=== PATIENT | female | born 2000 | race Caucasian/White ===

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

== ENCOUNTER → 2018-06-07 | Outpatient (REF) | payer OTHER ==
[~2018-06-07] MED LIST: ACET30TAB PO; APRI0.37 PO; DICY20TA11 PO
[2018-06-07 15:17] LABS: CHLAMYDIA DNA AMPLIFICATION NEGATIVE (NEGATIVE); GC DNA AMPLIFICATION NEGATIVE (NEGATIVE)
== END ==
LOC: M SFHCWAGY 13:31
PROVIDERS: ATTEND Nurse Practitioner Women's Health
DX: Z11.3 Encounter for screening for infections with a predominantly sexual mode of transmission (principal)

== ENCOUNTER → 2018-12-21 | Outpatient (REF) | payer OTHER ==
[~2018-12-21] MED LIST changes: +ACET-716 PO; -ACET30TAB PO
[2018-12-21 19:55] LABS: CHLAMYDIA DNA AMPLIFICATION NEGATIVE (NEGATIVE); GC DNA AMPLIFICATION NEGATIVE (NEGATIVE)
== END ==
LOC: M SFHCWAGY 15:43
PROVIDERS: ATTEND Family Medicine
DX: Z11.3 Encounter for screening for infections with a predominantly sexual mode of transmission (principal)

== ENCOUNTER → 2019-03-29 | Outpatient (CLI) | payer OTHER ==
--- NOTE | 2019-03-29 14:15 | REP ---
RIGHT ANKLE: FOUR VIEWS. HISTORY: Inversion sprain. FINDINGS: There is some lateral soft tissue swelling. Ankle mortise is intact. No fracture is visible. Bones, joints, and soft tissues are otherwise unremarkable. IMPRESSION: Mild anterolateral soft tissue swelling. No fracture or subluxation seen. Electronically Signed by Slade Roland MD 03/29/2019 02:59 P
== END ==
LOC: M CLY 11:41
PROVIDERS: ATTEND Family Medicine
DX: S93.401D Sprain of unspecified ligament of right ankle, subsequent encounter (principal)

== ENCOUNTER → 2019-07-12 | Outpatient (CLI) | payer OTHER ==
[2019-07-12 17:49] LABS: HEMOGLOBIN 14.5 g/dl (12.0-15.5); PLATELET COUNT, AUTOMATED 288 10^3/uL (150-450); WHITE BLOOD COUNT 8.8 10^3/uL (4.0-10.0)
[2019-07-12 18:04] LABS: ALBUMIN 4.4 GM/DL (3.2-5.2); ALT/SGPT 18 U/L (12-78); BILIRUBIN,TOTAL 0.3 MG/DL (0.2-1.0); BLOOD UREA NITROGEN 13 MG/DL (7-18); C REACTIVE PROTEIN QUANTITATIV < 0.30 MG/DL (0.00-0.30); CALCIUM LEVEL 9.3 MG/DL (8.5-10.1); CARBON DIOXIDE LEVEL 25 MEQ/L (21-32); CHLORIDE LEVEL 111 MEQ/L (98-107); CREATININE FOR GFR 0.88 MG/DL (0.55-1.30); GLOMERULAR FILTRATION RATE > 60.0 (>60); GLUCOSE, FASTING 64 MG/DL (70-100); POTASSIUM SERUM 4.2 MEQ/L (3.5-5.1); SODIUM LEVEL 141 MEQ/L (136-145); TOTAL PROTEIN 7.3 GM/DL (6.4-8.2)
[2019-07-12 18:12] LABS: TOTAL 25(OH) VITAMIN D 23.7 NG/ML (30.0-100.0)
[2019-07-12 18:13] LABS: VITAMIN B12 LEVEL 560 PG/ML (247-911)
[2019-07-12 18:15] LABS: ERYTHROCYTE SEDIMENTATION RATE 6 mm/hr (0-20)
== END ==
LOC: M LAB 17:19
PROVIDERS: ATTEND Family Medicine
DX: R10.33 Periumbilical pain (principal); R14.0 Abdominal distension (gaseous); R19.7 Diarrhea, unspecified

== ENCOUNTER → 2019-07-23 | Outpatient (REF) | payer OTHER ==
[2019-07-24 13:41] LABS: CHLAMYDIA DNA AMPLIFICATION NEGATIVE (NEGATIVE); GC DNA AMPLIFICATION NEGATIVE (NEGATIVE)
== END ==
LOC: M SFHCWAGY 10:17
PROVIDERS: ATTEND Nurse Practitioner Women's Health
DX: Z11.3 Encounter for screening for infections with a predominantly sexual mode of transmission (principal)

== ENCOUNTER 2019-11-07 04:09 | Emergency (ER) | payer OTHER ==
[~2019-11-07] VITALS: Ht 165.1 cm; Wt 63.2 kg
[2019-11-07] MEDS ORDERED: hycosamine PO (04:16)
[2019-11-07] MEDS ORDERED: FAMO1TAB25 PO (04:16)
[2019-11-07] MEDS ORDERED: MIRT1TAB15 PO (04:16)
[2019-11-07 04:47] LABS: BASO # 0.1 10^3/uL (0.0-0.2); BASO % 0.9 % (0.0-1.0); EOS # 0.5 10^3/uL (0.0-0.5); EOS % 5.8 % (0.0-3.0); HEMATOCRIT 40.4 % (36.0-47.0); HEMOGLOBIN 13.6 g/dl (12.0-15.5); LYMPH # 2.6 10^3/uL (1.5-5.0); LYMPH % 32.5 % (24.0-44.0); MEAN CORPUSCULAR HEMOGLOBIN 28.9 pg (27.0-33.0); MEAN CORPUSCULAR HGB CONC 33.7 g/dl (32.0-36.5); MEAN CORPUSCULAR VOLUME 85.8 fl (80.0-96.0); MONO # 0.6 10^3/uL (0.0-0.8); MONO % 8.1 % (0.0-5.0); NEUTROPHILS # 4.2 10^3/uL (1.5-8.5); NEUTROPHILS % 52.4 % (36.0-66.0); PLATELET COUNT, AUTOMATED 233 10^3/uL (150-450); RED BLOOD COUNT 4.71 10^6/uL (4.00-5.40); WHITE BLOOD COUNT 7.9 10^3/uL (4.0-10.0)
[2019-11-07 05:11] LABS: ALBUMIN 4.3 GM/DL (3.2-5.2); ALT/SGPT 14 U/L (12-78); BILIRUBIN,DIRECT < 0.1 MG/DL (0.0-0.2); BILIRUBIN,TOTAL 0.3 MG/DL (0.2-1.0); LIPASE 168 U/L (73-393); TOTAL PROTEIN 7.3 GM/DL (6.4-8.2)
[2019-11-07] MEDS ORDERED: KETOROLAC 30 MG/ML 1ML VIAL IV ONE (06:15)
[2019-11-07] MEDS ORDERED: ONDANSETRON 4MG/2ML VIAL IV ONE (06:15)
[2019-11-07] MEDS ORDERED: ONDA4TAB6 PO (07:02)
[2019-11-07 07:08] VITALS: BP 134/74
== END 2019-11-07 07:23 | disposition home or self-care (01) ==
LOC: M ED 04:09
DX: K29.70 Gastritis, unspecified, without bleeding (principal); K52.9 Noninfective gastroenteritis and colitis, unspecified; F17.210 Nicotine dependence, cigarettes, uncomplicated; Z88.2 Allergy status to sulfonamides; Z88.8 Allergy status to other drugs, medicaments and biological substances; Z79.899 Other long term (current) drug therapy
CPT/HCPCS: 80047; 80076; 83690; 84702; 85025; 93041; 96374; 96375; 99284; J1885; J2405

== ENCOUNTER → 2020-06-25 | Outpatient (REF) | payer OTHER ==
[~2020-06-25] MED LIST changes: +FAMO1TAB25 PO; +MIRT1TAB15 PO; +ONDA4TAB6 PO; +hycosamine PO
== END ==
LOC: M SFHCCLAY 14:08
PROVIDERS: ATTEND Family Medicine
DX: N91.2 Amenorrhea, unspecified (principal)

== ENCOUNTER 2021-03-13 06:16 | Emergency (ER) | payer OTHER ==
[~2021-03-13] VITALS: Ht 165.1 cm; Wt 59.1 kg
[2021-03-13 06:16] VITALS: BP 128/70
[~2021-03-13 06:16] MED LIST changes: +FAMO10TA50 PO; -FAMO1TAB25 PO
--- OUTSIDE RECORDS SUMMARY | 2021-03-13 06:22 | CCD ---
Author Author [facility] Organization [facility] Address Unknown Phone Unavailable Care Team Providers Care Elevator Adjuster Name Role Phone Mike Sagastume Unavailable PROBLEMS Type Condition ICD9-CM Code [id number] Code Onset Dates Condition S tatus W/U Status Risk SNOMED Code Notes Problem Irregular periods/menstrual cycles N92.6 Activ e confirmed 61912148 Problem Mild episode of recurrent major depressive disorder F33.0 Active confirmed 021062330 Problem Lymphocytic colitis K52.832 Active confirmed 52426388 Problem Irregular periods N92.6 Active confirmed 80 130200 Problem Chronic intractable headache, unspecified headache type R51 Active confirmed 94193257 Problem Constipation, unspecified constipation type K59.00 Active confirmed 13405221 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 Code:[address]-78) SOB Drug Allergy Active ENCOUNTERS from 1998 to 2021-03-11 Encounter Location Date Provider Diagnosis [place] [address] [facility] [phone] [place] [address] Feb, Mike Sagastume IMMUNIZATIONS Vaccine Route Administration Date Status Pfizer #1 dose COVID-19 (given elsewhere) SARSCOV2 VAC 30MCG /0.3ML IM Unknown October 05, 2020 Administered Depo-Provera 150mg/1mL Medroxy-Progestrone Acetate IM Intram uscular July 23, 2019 Administered Depo-Provera 150mg/1mL Medroxy-Progestrone Acetate IM Intram uscular October 18, 2019 Administered Pfizer #3 dose COVID-19 (given elsewhere) SARSCOV2 VAC 30MCG /0.3ML IM Unknown October 26, 2020 Administered Influenza 36 months & up VFC IM Intramuscular Feb 02, 2016 Ad ministered Depo-Provera 150mg/1mL Medroxy-Progestrone Acetate IM Intram uscular Apr 30, 2019 Administered Depo-Provera 150mg/1mL Medroxy-Progestrone Acetate IM Intram uscular Feb 05, 2019 Administered Depo-Provera 150mg/1mL Medroxy-Progestrone Acetate IM Intram uscular November 21, 2018 Administered Depo-Provera 150mg/1mL Medroxy-Progestrone Acetate IM Intram uscular August 30, 2018 Administered Depo-Provera 150mg/1mL Medroxy-Progestrone Acetate IM Intram uscular Jun 07, 2018 Administered Depo provera 150mg (Medroxy-progestrone acetate) IM Intramus cular August 16, 2016 Administered Depo provera 150mg (Medroxy-progestrone acetate) IM Intramuscula r May 24, 2016 Administered Depo provera 150mg (Medroxy-progestrone acetate) IM Intramuscula r Mar 01, 2016 Administered SOCIAL HISTORY Tobacco Use: Social History Observation Description Date Details (start date - stop date) Current Smoker Sex Assigned At : Social History Observation Description Sex Assigned At Unknown Education: Question Answer Notes Level of Education: Finished High School Audit Question Answer Notes Total Score: 1 Interpretation: Alcohol Education Language: Question Answer Notes Languages spoken: Kyrgyz Sexual Hx: Question Answer Notes Had sex in the last 12 months (vaginal, oral, or anal)? Yes LMP: 06/15/2019 Have you ever had an STD? No Prevention Strategies discussed: Condoms with Men only Use protection? Yes How often? Some of the time Drug and Alcohol Question Answer Notes Total Score: 0 Interpretation: No problems reported Alcohol Screening: Question Answer Notes Did you have a drink containing alcohol in the past year? No Points 0 Interpretation Negative BMI Care Goal Follow-Up Question Answer Notes Below Normal BMI Follow-Up Dietary education for weight gain Tobacco Use: Question Answer Notes Are you a: current smoker Smoking Cessation Information Given 03/11/2021 Patient counseled on the dangers of tobacco use and urged to quit: 03/11/2021 How many cigarettes a day do you smoke? 6-10 Are you interested in quitting? Thinking about quitting Counseled the patient on smoking cessation, education provid ed 03/11/2021 REASON FOR REFERRAL No Information VITAL SIGNS No information MEDICATIONS Medication SIG (Take, Route, Frequency, Duration) Notes Start Da te End Date Status Amitriptyline HCl 10 MG 1-3 tablet at bedtime Orally Once a day for 30 day(s) Dec, Not-Taking Baclofen 20 MG 1 tablet Orally Three times a day- muscl e relaxer for 10 day(s) Feb, Active Celecoxib 200 MG 1 capsule with food Orally Once a day for 30 da y(s) Feb, Active Meloxicam 15 MG 1 tablet Orally Once a day for 30 day(s) 2 1 Feb, 2021 Active Aviane 0.1-20 MG-MCG 1 tablet Orally Once a day for 28 day(s) September, Active Sertraline HCl 25 MG 1 tablet Orally Once a day for 30 day(s) Active Omeprazole 40 MG 1 capsule 30 minutes before morning meal Orally Once a day for 30 day(s) Active PROCEDURES No Information RESULTS No Results REASON FOR VISIT PA Celecoxib 200mg capsules MEDICAL (GENERAL) HISTORY Type Description Date Medical History GERD Medical History Asthma Medical History Allergies Medical History Depression Medical History Endometriosis- Seen at [facility] Surgical History colonoscopy and Endoscopy 08/2016 Surgical History hernia repair- Dr. Krishna 08/2017 Surgical History wisdom teeth extract 2019 Hospitalization History No Hospitalization history informati on Goals Section No Information Health Concerns No Information MEDICAL EQUIPMENT No Information MENTAL STATUS No Information FUNCTIONAL STATUS No Information ASSESSMENTS No Information PLAN OF TREATMENT Medication Medication Name Sig Start Date Stop Date Celecoxib 200 MG 1 capsule with food Orally Once a day fo r 30 day(s) Feb, Meloxicam 15 MG 1 tablet Orally Once a day for 30 day(s) Feb, Baclofen 20 MG 1 tablet Orally Three times a day- muscl e relaxer for 10 day(s) Feb, Next Appt Details Provider Name:Mike Sagastume, 2020-11- 11 02:30:00 PM, Aida GARCIA , , [place], [address], Insurance Providers Payer Name Payer Address Payer Phone Insured Name Patient Relati onship to Insured Coverage Start Date Coverage End Date [facility] COMMUNITY PLAN [facility] [address] [facility] [address] ANA ROUSSEAU self
--- OUTSIDE RECORDS SUMMARY | 2021-03-13 06:22 | CCD ---
Author Author [facility] Organization [facility] Address Unknown Phone Unavailable Care Team Providers Care Geophysical Drafter Name Role Phone Mike Sagastume Unavailable PROBLEMS Type Condition ICD9-CM Code [id number] Code Onset Dates Condition S tatus W/U Status Risk SNOMED Code Notes Problem Irregular periods/menstrual cycles N92.6 Activ e confirmed 90606291 Problem Mild episode of recurrent major depressive disorder F33.0 Active confirmed 859769775 Problem Lymphocytic colitis K52.832 Active confirmed 08930875 Problem Irregular periods N92.6 Active confirmed 80 749287 Problem Chronic intractable headache, unspecified headache type R51 Active confirmed 35749138 Problem Constipation, unspecified constipation type K59.00 Active confirmed 10933785 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 Active confirmed 469453688 Problem Amenorrhea N91.2 Active confirmed 64203953 ALLERGIES Allergen (clinical drug ingredient) Drug/Non Drug Allergy do cumented on EMR Reaction Allergy Type Onset Date Status sennosides, LONG-TERM Senna Nausea/Vomiting Drug Allergy Ac tive Sulfasalazine Sulfa Antibiotics Hives Drug Allergy Ac tive montelukast Singulair([facility] Code:[address]-35) SOB Drug Allergy Active ENCOUNTERS from 1998 to 2021-03-11 Encounter Location Date Provider Diagnosis [place] [address] [facility] [phone] [place] [address] Feb, Mike Sagastume IMMUNIZATIONS Vaccine Route Administration [...] Education Language: Question Answer Notes Languages spoken: Macedonian Sexual Hx: Question Answer Notes Had sex [...] Information RESULTS No Results REASON FOR VISIT neck/shoulder MEDICAL (GENERAL) HISTORY Type Description Date Medical History GERD Medical History Asthma Medical History Allergies Medical History Depression Medical History Endometriosis- Seen at [facility] Surgical History colonoscopy and Endoscopy 08/2016 [...] 11 02:30:00 PM, Aida GARCIA , , [place], [address], Insurance Providers Payer Name Payer Address Payer Phone Insured Name Patient Relati onship to Insured Coverage Start Date Coverage End Date [facility] COMMUN[facility]AN [facility] [address] [facility] [phone] [phone] ANA ROUSSEAU self
--- OUTSIDE RECORDS SUMMARY | 2021-03-13 06:22 | CCD ---
Author Author [facility] Organization [facility] Address Unknown Phone Unavailable Care Team Providers Care Sales Demonstrator Name Role Phone Tom Haque Unavailable PROBLEMS Type Condition ICD9-CM Code [id number] Code Onset Dates Condition S tatus W/U Status Risk SNOMED Code Notes Problem Irregular periods/menstrual cycles N92.6 Activ e confirmed 16658002 Problem Mild episode of recurrent major depressive disorder F33.0 Active confirmed 862747043 Problem Lymphocytic colitis K52.832 Active confirmed 44913053 Problem Irregular periods N92.6 Active confirmed 80 533545 Problem Chronic intractable headache, unspecified headache type R51 Active confirmed 14715849 Problem Constipation, unspecified constipation type K59.00 Active confirmed 75155746 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 Aida GARCIA [phone] [place] [address] Jan, Tom Haque Nasal congestion R09.81 ; Cough R05 and Viral URI J06.9 IMMUNIZATIONS Vaccine Route Administration Date Status Pfizer #1 dose COVID-19(given elsewhere) SARSCOV2 VAC 30MCG/ 0.3ML IM Unknown October 05, 2020 Administered Depo-Provera 150mg/1mL Medroxy-Progestrone Acetate IM Intram uscular July 23, 2019 Administered Depo-Provera 150mg/1mL Medroxy-Progestrone Acetate IM Intram uscular October 18, 2019 Administered Pfizer #2 dose COVID-19(given elsewhere) SARSCOV2 VAC 30MCG/ 0.3ML IM Unknown October 26, 2020 Administered Influenza [...] Education Language: Question Answer Notes Languages spoken: Australian Sexual Hx: Question Answer Notes Had sex [...] a: current smoker Smoking Cessation Information Given 12/28/2020 Patient counseled on the dangers of tobacco use and urged to quit: 12/28/2020 How many cigarettes a day do you smoke? 6-10 Are you interested in quitting? Thinking about quitting REASON FOR REFERRAL No Information VITAL SIGNS Weight 131 lbs Jan, Height 65 in Jan, BMI 21.80 kg/m2 Jan, Heart Rate 102 /min Jan, Respiratory Rate 16 /min Jan, Temperature 99.9 degrees Fahrenheit Jan, Oximetry 98 Jan, Blood pressure systolic 123 mm Hg Jan, Blood pressure diastolic 82 mm Hg Jan, MEDICATIONS Medication SIG (Take, Route, Frequency, Duration) Notes Start Da te End Date Status Sertraline HCl 25 MG 1 tablet Orally Once a day for 30 day(s) Active Amitriptyline HCl 10 MG 1-3 tablet at bedtime Orally Once a day for 30 day(s) Dec, Active Omeprazole 40 MG 1 capsule 30 minutes before morning meal Orally Once a day for 30 day(s) Active Aviane 0.1-20 MG-MCG 1 tablet Orally Once a day for 28 day(s) September, Active Hyoscyamine Sulfate 0.125 MG 1 tablet as needed Orally Four time s a day September, Active PROCEDURES No Information RESULTS Component Value Reference Range LUIS M COVID AG (Point of Care) Reviewed date:01/22/2021 14:45:05 Interpretation:Negative Performing Lab:[facility], [facility] INTERFACE [address] [place] [address] , ,[place] [address] LUIS M COVID ANTIGEN NEGATIVE NEGATIVE REASON FOR VISIT ? sinus infection MEDICAL (GENERAL) HISTORY Type Description Date Medical History GERD Medical History Asthma Medical History Allergies Medical History Depression Medical History Endometriosis- Seen at [facility] Surgical History colonoscopy and Endoscopy 08/2016 Surgical History hernia repair- Dr. Krishna 08/2017 Surgical History wisdom teeth extract 2019 Hospitalization History No Hospitalization history informati on Goals Section No Information Health Concerns No Information MEDICAL EQUIPMENT No Information MENTAL STATUS No Information FUNCTIONAL STATUS No Information ASSESSMENTS Encounter Date Diagnosis Assessment Notes Treatment Notes Treatm ent Clinical Notes Jan, Nasal congestion (ICD-10 - R09.81) Jan, Cough (ICD-10 - R05) Jan, Viral URI (ICD-10 - J06.9) Dhaval arrieta have a viral infection at this time. Unfortunately, antibiotics do not help with viral infections. They are usually benign and self-limited infections, so treatment is based on symptomatic relief. Rest and drink clear fluids throughout the day. You may use humidification and saline irrigation to help with the congestion. You may also take motrin or tylenol as needed for pain or fever. You are considered to be contagious until you have been fever free for more than 24 hours. Viral infections sometimes may last 10-14 days before resolving completely. However, if symptoms are worsening any time after 5-7 days of illness, especially if you develop a fever or difficulty breathing; please be reevaluated as soon as possible. If you do not have any cardiac or blood pressure problems you may also consider using kpbh-duz-yheakcy decongestant (i.e. Sudafed) medication as needed. Jan, Other Medication/s di scussed with patient and questions answered. RTC as needed for worsening or unresolved symptoms. Patient states understanding and agreement with this plan. PLAN OF TREATMENT Treatment Notes Assessment Notes Clinical Notes Viral URI Dhaval arrieta have a viral infe ction at this time. Unfortunately, antibiotics do not help with viral infections. They are usually benign and self- limited infections, so treatment is based on symptomatic relief. Rest and drink clear fluids throughout the day. You may use humidification and saline irrigation to help with the congestion. You may also take motrin or tylenol as needed for pain or fever. You are considered to be contagious until you have been fever free for more than 24 hours. Viral infections sometimes may last 10- 14 days before resolving completely. However, if symptoms are worsening any time after 5-7 days of illness, especially if you develop a fever or difficulty breathing; please be reevaluated as soon as possible. If you do not have any cardiac or blood pressure problems you may also consider using exwk-dfo-qqmzjwf decongestant (i.e. Sudafed) medication as needed. Next Appt Details 2 - 3 Days unless improving Reason: Provider Name:Mike Sagastume, 02:30:00 PM, [address], , [place], [address], Insurance Providers Payer Name Payer Address Payer Phone Insured Name Patient Relati onship to Insured Coverage Start Date Coverage End Date [facility] COMMUNITY PLAN [facility] [address] [facility] [address] ANA ROUSSEAU self
--- OUTSIDE RECORDS SUMMARY | 2021-03-13 06:22 | CCD ---
Author Author [facility] Organization [facility] Address Unknown Phone Unavailable Care Team Providers Care Desktop Support Specialist Name Role Phone Mike Sagastume Unavailable PROBLEMS Type Condition ICD9-CM Code [id number] Code Onset Dates Condition S tatus W/U Status Risk SNOMED Code Notes Problem Irregular periods/menstrual cycles N92.6 Activ e confirmed 18097559 Problem Mild episode of recurrent major depressive disorder F33.0 Active confirmed 286532695 Problem Lymphocytic colitis K52.832 Active confirmed 18739858 Problem Irregular periods N92.6 Active confirmed 80 870386 Problem Chronic intractable headache, unspecified headache type R51 Active confirmed 07579239 Problem Constipation, unspecified constipation type K59.00 Active confirmed 38523928 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 [phone] [place] [address] Dec, Mike Sagastume Mild episode of recurrent major depressi ve disorder F33.0 ; Frequent headaches R51.9 ; Lymphocytic colitis K52.832 and Irregular periods N92.6 IMMUNIZATIONS Vaccine Route Administration Date Status Depo-Provera 150mg/1mL Medroxy-Progestrone Acetate IM Intram uscular October 18, 2019 Administered Depo-Provera 150mg/1mL Medroxy-Progestrone Acetate IM Intram uscular July 23, 2019 Administered Pfizer #2 dose COVID-19(given elsewhere) SARSCOV2 VAC 30MCG/ 0.3ML IM Unknown October 26, 2020 Administered Pfizer #1 dose COVID-19(given elsewhere) SARSCOV2 VAC 30MCG/ 0.3ML IM Unknown October 05, 2020 Administered Influenza 36 months & up [...] Education Language: Question Answer Notes Languages spoken: German Sexual Hx: Question Answer Notes Had sex [...] FOR REFERRAL No Information VITAL SIGNS Weight 129.8 lbs Dec, Weight-kg 58.88 kg Dec, Height 65 in Dec, BMI 21.60 kg/m2 Dec, Heart Rate 93 /min Dec, Respiratory Rate 16 /min Dec, Temperature 98.5 degrees Fahrenheit Dec, Oximetry 99ra Dec, Blood pressure systolic 126 mm Hg Dec, Blood pressure diastolic 73 mm Hg Dec, MEDICATIONS Medication SIG (Take, Route, Frequency, Duration) Notes Start Da te End Date Status Sertraline HCl 25 MG 1 tablet Orally Once a day for 30 day(s) Active Hyoscyamine Sulfate 0.125 MG 1 tablet as needed Orally Four time s a day September, Active Omeprazole 40 MG 1 capsule 30 minutes before morning meal Orally Once a day for 30 day(s) Active Aviane 0.1-20 MG-MCG 1 tablet Orally Once a day for 28 day(s) September, Active Amitriptyline HCl 10 MG 1-3 tablet at bedtime Orally Once a day for 30 day(s) Dec, Active PROCEDURES No Information RESULTS No Results REASON FOR VISIT Patient did see gastro, they recommended amitriptyline- if pcp approved for her IBS as well as anxiety? see consult notes MEDICAL (GENERAL) HISTORY Type Description Date Medical History GERD Medical History Asthma Medical History Allergies Medical History Depression Medical History Endometriosis- Seen at [facility] Surgical History colonoscopy and Endoscopy 08/2016 Surgical History hernia repair- Dr. Krishna 08/2017 Surgical History wisdom teeth extract 2019 Hospitalization History No Hospitalization history informati on Goals Section No Information Health Concerns No Information MEDICAL EQUIPMENT No Information MENTAL STATUS No Information FUNCTIONAL STATUS No Information ASSESSMENTS Encounter Date Diagnosis Assessment Notes Treatment Notes Treatm ent Clinical Notes Dec, Mild episode of recurrent ma senia depressive disorder (ICD-10 - F33.0) Will cont Zoloft as was helpful for both mood and PALOMARES. She is improved. Pt is agreeable. 09 Aug, 2021 Frequent headaches (ICD-10 - R51.9) Mostly stable. Pt agreeable. Dec, Lymphocytic colitis (ICD-10 - K52.832) Cont with hyoscyamine but try to wean and will titrate elavil. Pt agreeable. New medication risks and benefits reviewed and discussed with patient. Dec, Irregular periods (ICD-10 - N92.6) Discussed options and due to irregular periods we will restart OCPs rather than depo. Pt is agreeable. PLAN OF TREATMENT Medication Medication Name Sig Start Date Stop Date Sertraline HCl 25 MG 1 tablet Orally Once a day for 30 day(s) Aviane 0.1-20 MG-MCG 1 tablet Orally Once a day for 28 day(s) September, Hyoscyamine Sulfate 0.125 MG 1 tablet as needed Orally Four times a day September, Amitriptyline HCl 10 MG 1-3 tablet at bedtime Orally Once a day for 30 day(s) Dec, Treatment Notes Assessment Notes Clinical Notes Mild episode of recurrent major depressive disorder Will cont Zoloft as was helpful for both mood and PALOMARES. She is improved. Pt is agreeable. Frequent headaches Mostly stable. Pt ag reeable. Lymphocytic colitis Cont with hyoscyamin e but try to wean and will titrate elavil. Pt agreeable. New medication risks and benefits reviewed and discussed with patient. Irregular periods Discussed options an d due to irregular periods we will restart OCPs rather than depo. Pt is agreeable. Next Appt Details 3 Months Reason: Provider Name:Mike Sagastume, 02:30:00 PM, Aida GARCIA , , [place], [address], Insurance Providers Payer Name Payer Address Payer Phone Insured Name Patient Relati onship to Insured Coverage Start Date Coverage End Date [facility] COMMUNITY PLAN [facility] [address] [facility] [phone] ANA ROUSSEAU self
--- OUTSIDE RECORDS SUMMARY | 2021-03-13 06:22 | CCD | Continuity of Care Document ---
Author Author Nadja PRIDE MD Organization Unknown Address [address] [place] [address] Phone [phone] Care Team Providers Care Corporate Associate Attorney Name Role Phone Mike Sagastume D.O. AUTM [phone] Problems Description No Information Available Social History Type Date Description Comments Sex Unknown ETOH Use 2 A Month Tobacco Use Start: Unknown Non Smoker Tobacco Use Start: Unknown Patient is a current smoker, smo kes every day 1pk q2d Exercise Type/Frequency Does not exercise Allergies, Adverse Reactions, Alerts Active Allergies Reaction Severity Comments Date Singulair 01/06/2014 Senokot 01/06/2014 Sulfa Urticaria 09/20/2017 Medications Active Medications SIG Qnty Indications Ordering Provide r Date Mesalamine ER 0.375gm Caps ER 24HR 2tabs qam Unknown Omeprazole 40mg Capsules DR 1 cap qd Unknown Sertraline HCL 25mg Tablets 1 tab qd Unknown Hyoscyamine Sulfate 0.125mg Tablet s 2tabs bid Unknown Immunizations Description No Information Available Vital Signs Date Vital Result Comment 12/09/2020 2:04pm BP Systolic 112 mmHg BP Diastolic 64 mmHg Height 65 inches 5'5" Weight 131.00 lb BMI (Body Mass Index) 21.8 kg/m2 Winfred Body Weight 125 lb Weight 59.422 kg BSA (Body Surface Area) 1.65 m2 01/06/2014 1:36pm BP Systolic 140 mmHg BP Diastolic 70 mmHg Height 68 inches 5'8" Weight 116.00 lb BMI (Body Mass Index) 17.6 kg/m2 Weight 52.618 kg Weight Percentile 45th Height Percentile 94 % BSA (Body Surface Area) 1.62 m2 Results Description No Information Available Procedures Date Code Description Status 12/09/2020 78152 Office/Outpatient New Moderate M DM 45-59 Minutes Completed Medical Devices Description No Information Available Encounters Type Date Location Provider Dx Diagnosis Office Visit 12/09/2020 1:45p [facility] Te Pride MD K58.2 Mixed irritable bowel syndro me K59.00 Constipation, unspecified Assessments Date Code Description Provider 12/09/2020 K58.2 Mixed irritable bowel syndrome D nehemias Pride MD 12/09/2020 K59.00 Constipation, unspecified Te Pride MD Plan of Treatment 12/09/2020 - Te Pride MD* K58.2 Mixed irritable bowel syndrome * K59.00 Constipation, unspecified * * Comments:* Pt with vague Hx of possible MC in 2017 (I do not have records). was treated with 5-ASA at some point. Has been following with Gastro in [place]. Her repeat colonoscopy in 01/2020, Path normal duodenal mucosa, normal colonic mucosa. --Her 5-ASA was stopped.Her symptoms were never well controlled on or off 5-ASA meds. On her last visit the 5-ASA was stopped. Pt is following up here for treatment for irritable bowel syndrome * Follow up:* Follow up with PCP to start Amitriptyline 10 - 25 mg QHS (if sertraline can be stopped) She can follow up with me PRN * Recommendations:* 1) at this point would recommend starting her on Amitriptyline 10-20 mg po QHS for IBS-D. She is on Sertraline at present (interaction). I will let her PCP decide if needs sertraline, or if can be replaced with Amitriptyline. 2) In menatime would retry start taking Dicyclomine 20 mg or hyoscyamine 0.375 mg straight BID dosing rather than PRN 3) lactose free diet. 4) Her 5-ASA can be stopped 5) At this time I do not think she needs repeat EGD/D[place]ois Functional Status Description No Information Available Mental Status Description No Information Available Referrals Refer to Reason for Referral Status Appt Date Te Pride M.D. COLITIS/DIARRHEA/BLOOD IN [facility] K52.832-LYMPHOCYTIC COLITIS Scheduled 12/09/2020 [facility], Gastroenterology [address], [address] [place] [address] [phone]
--- OUTSIDE RECORDS SUMMARY | 2021-03-13 06:22 | CCD ---
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 Active confirmed 89699114 Problem Irregular periods N92.6 Active confirmed 80 947324 Problem Chronic intractable headache, unspecified headache type R51 Active confirmed 81523141 Problem Constipation, unspecified constipation type K59.00 Active confirmed 73691072 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 Active confirmed 709472106 Problem Amenorrhea N91.2 Active confirmed 08460279 ALLERGIES Allergen (clinical drug ingredient) Drug/Non Drug Allergy do cumented on EMR Reaction Allergy Type Onset Date Status sennosides, [facility] Senna Nausea/Vomiting Drug Allergy Ac tive Sulfasalazine Sulfa Antibiotics Hives Drug Allergy Ac tive montelukast Singulair([facility] Code:[address]-61) SOB Drug Allergy Active ENCOUNTERS from 1998 to 2021-01-22 Encounter Location Date Provider Diagnosis [facility] Aida GARCIA [phone] [place] [address] Jan, Mike Sagastume IMMUNIZATIONS Vaccine Route Administration Date Status Depo-Provera [...] Education Language: Question Answer Notes Languages spoken: Tristanian Sexual Hx: Question Answer Notes Had sex [...] day September, Active PROCEDURES No Information RESULTS No Results REASON FOR VISIT triage MEDICAL (GENERAL) HISTORY Type Description Date Medical History GERD Medical History Asthma Medical History Allergies Medical History Depression Medical History Endometriosis- Seen at [facility] Surgical History colonoscopy and Endoscopy 08/2016 Surgical History hernia repair- Dr. Krishna 08/2017 Surgical History wisdom teeth extract 2019 Hospitalization History No Hospitalization history informati on Goals Section No Information Health Concerns No Information MEDICAL EQUIPMENT No Information MENTAL STATUS No Information FUNCTIONAL STATUS No Information ASSESSMENTS No Information PLAN OF TREATMENT Next Appt Details Provider Name:Mike Matias Obeycari, 02:30:00 PM, [address] , , [place], [address], Insurance Providers Payer Name Payer Address Payer Phone Insured Name Patient Relati onship to Insured Coverage Start Date Coverage End Date FORMERLY [facility] [employer] [facility] [address] [facility] [id number] ANA ROUSSEAU self
--- OUTSIDE RECORDS SUMMARY | 2021-03-13 06:24 | CCD ---
Author Author [facility] Organization [facility] Address Unknown Phone Unavailable Care Team Providers Care Commanding Officer Traffic Division Name Role Phone Madhav Dacosta MD Unavailable Unavailable Madhav Dacosta MD Unavailable Unavailable Madhav Dacosta MD Unavailable Unavailable Madhav Dacosta MD Unavailable Unavailable Madhav Dacosta MD Unavailable Unavailable Madhav Dacosta MD Unavailable Unavailable Madhav Dacosta MD Unavailable Unavailable Agheli, Aref MD Unavailable Unavailable Agheli, Aref MD Unavailable Unavailable Agheli, Aref MD Unavailable Unavailable Agheli, Aref MD Unavailable Unavailable Agheli, Aref MD Unavailable Unavailable Agheli, Aref MD Unavailable Unavailable Agheli, Aref MD Unavailable Unavailable Agheli, Aref MD Unavailable Unavailable Agheli, Aref MD Unavailable Unavailable Agheli, Aref MD Unavailable Unavailable Agheli, Aref MD Unavailable Unavailable Agheli, Aref MD Unavailable Unavailable Agheli, Aref MD Unavailable Unavailable Agheli, Aref MD Unavailable Unavailable Agheli, Aref MD Unavailable Unavailable Agheli, Aref MD Unavailable Unavailable Agheli, Aref MD Unavailable Unavailable Agheli, Aref MD Unavailable Unavailable Agheli, Aref MD Unavailable Unavailable Agheli, Aref MD Unavailable Unavailable Agheli, Aref MD Unavailable Unavailable Agheli, Aref MD Unavailable Unavailable Agheli, Aref MD Unavailable Unavailable Agheli, Aref MD Unavailable Unavailable Agheli, Aref MD Unavailable Unavailable Agheli, Aref MD Unavailable Unavailable Agheli, Aref MD Unavailable Unavailable Agheli, Aref MD Unavailable Unavailable Agheli, Aref MD Unavailable Unavailable Agheli, Aref MD Unavailable Unavailable Agheli, Aref MD Unavailable Unavailable Agheli, Aref MD Unavailable Unavailable Agheli, Aref MD Unavailable Unavailable Agheli, Aref MD Unavailable Unavailable Agheli, Aref MD Unavailable Unavailable Agheli, Aref MD Unavailable Unavailable Agheli, Aref MD Unavailable Unavailable Agheli, Aref MD Unavailable Unavailable Agheli, Aref MD Unavailable Unavailable Agheli, Aref MD Unavailable Unavailable Agheli, Aref MD Unavailable Unavailable Agheli, Aref MD Unavailable Unavailable Agheli, Aref MD Unavailable Unavailable Agheli, Aref MD Unavailable Unavailable Agheli, Aref MD Unavailable Unavailable Agheli, Aref MD Unavailable Unavailable Agheli, Aref MD Unavailable Unavailable Agheli, Aref MD Unavailable Unavailable Agheli, Aref MD Unavailable Unavailable Agheli, Aref MD Unavailable Unavailable Agheli, Aref MD Unavailable Unavailable Agheli, Aref MD Unavailable Unavailable Agheli, Aref MD Unavailable Unavailable LANA GONZALEZ MD Unavailable Unavailable LANA GONZALEZ MD Unavailable Unavailable LANA GONZALEZ MD Unavailable Unavailable REINLANA JARAMILLO MD Unavailable Unavailable REINDL, LANA HOPE Unavailable Unavailable REINDL, LANA HOPE Unavailable Unavailable REINDL, LANA HOPE Unavailable Unavailable REINDL, LANA HOPE Unavailable Unavailable REINDL, LANA HOPE Unavailable Unavailable REINDL, LANA HOPE Unavailable Unavailable REINDL, LANA HOPE Unavailable Unavailable REINDL, LANA HOPE Unavailable Unavailable REINDL, LANA HOPE Unavailable Unavailable REINDL, LANA HOPE Unavailable Unavailable REINDL, LANA HOPE Unavailable Unavailable REINDL, LANA HOPE Unavailable Unavailable REINDL, LANA HOPE Unavailable Unavailable REINDL, LANA HOPE Unavailable Unavailable REINDL, LANA HOPE Unavailable Unavailable REINDL, LANA HOPE Unavailable Unavailable REINDL, LANA HOPE Unavailable Unavailable REINDL, LANA HOPE Unavailable Unavailable REINDL, LANA HOPE Unavailable Unavailable REINDL, LANA HOPE Unavailable Unavailable REINDL, LANA HOPE Unavailable Unavailable REINDL, LANA HOPE Unavailable Unavailable REINDL, LANA HOPE Unavailable Unavailable REINDL, LANA HOPE Unavailable Unavailable REINDL, LANA HOPE Unavailable Unavailable REINDL, LANA HOPE Unavailable Unavailable REINDL, LANA HOPE Unavailable Unavailable REINDL, LANA HOPE Unavailable Unavailable REINDL, LANA HOPE Unavailable Unavailable REINDL, LANA HOPE Unavailable Unavailable REINDL, LANA HOPE Unavailable Unavailable REINDL, LANA HOPE Unavailable Unavailable REINDL, LANA HOPE Unavailable Unavailable REINDL, LANA HOPE Unavailable Unavailable REINDL, LANA HOPE Unavailable Unavailable REINDL, LANA HOPE Unavailable Unavailable REINDL, LANA HOPE Unavailable Unavailable REINDL, LANA HOPE Unavailable Unavailable Diliberto, A Rita PA Unavailable Unavailable Diliberto, A Rita PA Unavailable Unavailable Diliberto, A Rita PA Unavailable Unavailable Diliberto, A Rita PA Unavailable Unavailable Diliberto, A Rita PA Unavailable Unavailable Diliberto, A Rita PA Unavailable Unavailable Diliberto, A Rita PA Unavailable Unavailable Diliberto, A Rita PA Unavailable Unavailable Diliberto, A Rita PA Unavailable Unavailable Diliberto, A Rita PA Unavailable Unavailable Diliberto, A Rita PA Unavailable Unavailable Diliberto, A Rita PA Unavailable Unavailable Diliberto, A Rita PA Unavailable Unavailable Diliberto, A Rita PA Unavailable Unavailable Diliberto, A Rita PA Unavailable Unavailable Diliberto, A Rita PA Unavailable Unavailable Diliberto, A Rita PA Unavailable Unavailable Diliberto, A Rita PA Unavailable Unavailable Diliberto, A Rita PA Unavailable Unavailable Diliberto, A Rita PA Unavailable Unavailable Diliberto, A Rita PA Unavailable Unavailable Diliberto, A Rita PA Unavailable Unavailable Diliberto, A Rita PA Unavailable Unavailable Diliberto, A Rita PA Unavailable Unavailable Diliberto, A Rita PA Unavailable Unavailable Diliberto, A Rita PA Unavailable Unavailable Diliberto, A Rita PA Unavailable Unavailable Diliberto, A Rita PA Unavailable Unavailable Diliberto, A Rita PA Unavailable Unavailable Diliberto, A Rita PA Unavailable Unavailable Diliberto, A Rita PA Unavailable Unavailable Diliberto, A Rita PA Unavailable Unavailable HUIZENGA, Florencio FOOTEON DO Unavailable Unavailable HUIZENGA, Florencio FOOTEON DO Unavailable Unavailable HUIZENGA, Florencio MINER DO Unavailable Unavailable HUIZENGA, Florencio MINER DO Unavailable Unavailable HUIZENGA, Florencio MINER DO Unavailable Unavailable HUIZENGA, Florencio MINER DO Unavailable Unavailable HUIZENGA, Florencio MINER DO Unavailable Unavailable HUIZENGA, Florencio MINER DO Unavailable Unavailable HUIZENGA, Florencio MINER DO Unavailable Unavailable HUIZENGA, Florencio MINER DO Unavailable Unavailable HUIZENGA, Florencio MINER DO Unavailable Unavailable HUIZENGA, Florencio MINER DO Unavailable Unavailable HUIZENGA, Florencoi MINER DO Unavailable Unavailable HUIZENGA, Florencio MINER DO Unavailable Unavailable HUIZENGA, Florencio MINER DO Unavailable Unavailable HUIZENGA, Florencio MINER DO Unavailable Unavailable HUIZENGA, Florencio MINER DO Unavailable Unavailable HUIZENGA, Florencio MINER DO Unavailable Unavailable HUIZENGA, Florencio MINER DO Unavailable Unavailable HUIZENGA, Florencio MINER DO Unavailable Unavailable HUIZENGA, Florencio MINER DO Unavailable Unavailable HUIZENGA, Florencio MINER DO Unavailable Unavailable HUIZENGA, Florencio MINER DO Unavailable Unavailable HUIZENGA, Florencio MINER DO Unavailable Unavailable HUIZENGA, Florencio MINER DO Unavailable Unavailable HUIZENGA, Florencio MINER DO Unavailable Unavailable HUIZENGA, Florencio MINER DO Unavailable Unavailable HUIZENGA, Florencio MINER DO Unavailable Unavailable HUIZENGA, Florencio MINER DO Unavailable Unavailable HUIZENGA, Florencio MINER DO Unavailable Unavailable HUIZENGA, Florencio MINER DO Unavailable Unavailable HUIZENGA, Florencio MINER DO Unavailable Unavailable HUIZENGA, Florencio MINER DO Unavailable Unavailable HUIZENGA, Florencio MINER DO Unavailable Unavailable HUIZENGA, Florencio MINER DO Unavailable Unavailable HUIZENGA, Florencio MINER DO Unavailable Unavailable HUIZENGA, Florencio MINER DO Unavailable Unavailable HUIZENGA, D KRISTOFER DO Unavailable Unavailable HUIZENGA, D KRISTOFER DO Unavailable Unavailable HUIZENGA, D KRISTOFER DO Unavailable Unavailable HUIZENGA, D KRISTOFER DO Unavailable Unavailable HUIZENGA, D KRISTOFER DO Unavailable Unavailable HUIZENGA, D KRISTOFER DO Unavailable Unavailable HUIZENGA, D KRISTOFER DO Unavailable Unavailable HUIZENGA, D KRISTOFER DO Unavailable Unavailable HUIZENGA, D KRISTOFER DO Unavailable Unavailable HUIZENGA, D KRISTOFER DO Unavailable Unavailable HUIZENGA, D KRISTOFER DO Unavailable Unavailable HUIZENGA, D KRISTOFER DO Unavailable Unavailable HUIZENGA, D KRISTOFER DO Unavailable Unavailable HUIZENGA, D KRISTOFER DO Unavailable Unavailable HUIZENGA, D KRISTOFER DO Unavailable Unavailable HUIZENGA, D KRISTOFER DO Unavailable Unavailable HUIZENGA, D KRISTOFER DO Unavailable Unavailable HUIZENGA, D KRISTOFER DO Unavailable Unavailable HUIZENGA, D KRISTOFER DO Unavailable Unavailable HUIZENGA, D KRISTOFER DO Unavailable Unavailable HUIZENGA, D KRISTOFER DO Unavailable Unavailable HUIZENGA, D KRISTOFER DO Unavailable Unavailable HUIZENGA, D KRISTOFER DO Unavailable Unavailable HUIZENGA, D KRISTOFER DO Unavailable Unavailable HUIZENGA, D KRISTOFER DO Unavailable Unavailable HUIZENGA, D KRISTOFER DO Unavailable Unavailable HUIZENGA, D KRISTOFER DO Unavailable Unavailable HUIZENGA, D KRISTOFER DO Unavailable Unavailable HUIZENGA, D KRISTOFER DO Unavailable Unavailable HUIZENGA, D KRISTOFER DO Unavailable Unavailable HUIZENGA, D KRISTOFER DO Unavailable Unavailable HUIZENGA, D KRISTOFER DO Unavailable Unavailable HUIZENGA, D KRISTOFER DO Unavailable Unavailable HUIZENGA, D KRISTOFER DO Unavailable Unavailable HUIZENGA, D KRISTOFER DO Unavailable Unavailable HUIZENGA, D KRISTOFER DO Unavailable Unavailable HUIZENGA, D KRISTOFER DO Unavailable Unavailable HUIZENGA, D KRISTOFER DO Unavailable Unavailable HUIZENGA, D KRISTOFER DO Unavailable Unavailable HUIZENGA, D KRISTOFER DO Unavailable Unavailable Re-disclosure Warning The records that you are about to access may contain information from federally-assisted alcohol or drug abuse programs. If such information is present, then the following federally mandated warning applies: This information has been disclosed to you from records protected by federal confidentiality rules (42 CFR part 2). The federal rules prohibit you from making any further disclosure of this information unless further disclosure is expressly permitted by the written consent of the person to whom it pertains or as otherwise permitted by 42 CFR part 2. A general authorization for the release of medical or other information is NOT sufficient for this purpose. The Federal rules restrict any use of the information to criminally investigate or prosecute any alcohol or drug abuse patient.The records that you are about to access may contain highly sensitive health information, the redisclosure of which is protected by Article 27-F of the [facility] Public Health law. If you continue you may have access to information: Regarding HIV / AIDS; Provided by facilities licensed or operated by the [facility] Office of Mental Health; or Provided by the [facility] Office for People With Developmental Disabilities. If such information is present, then the following [facility] mandated warning applies: This information has been disclosed to you from confidential records which are protected by state law. State law prohibits you from making any further disclosure of this information without the specific written consent of the person to whom it pertains, or as otherwise permitted by law. Any unauthorized further disclosure in violation of state law may result in a fine or assisted sentence or both. A general authorization for the release of medical or other information is NOT sufficient authorization for further disc losure. Family History Family Member Name Family Member Gender Family Member Status Date o f Status Description Data Source(s) Unknown Unknown Problem MEDENT ([facility], ) Encounters Encounter Providers Location Date Indications Data Source(s ) Unknown [address] [facility] [address] 03/11/2021 12:00:00 AM EDT eCW1 ([facility]) Unknown [address] [facility] [address] 03/10/2021 12:00:00 AM EDT eCW1 ([facility]) Outpatient Attender: Madhav Dacosta MD _[id number] 01/2021 07:15:59 PM EDT [facility] Out[facility] [address] [facility] [address] 01/22/2021 12:00:00 AM EDT eCW1 ([facility]) Unknown [address] [facility] [address] 01/22/2021 12:00:00 AM EDT eCW1 ([facility]) Outpatient [address] [facility] [address] 12/28/2020 12:00:00 AM EDT eCW1 ([facility]) Outpatient Attender: LANA Moncada/Gricel/Armen/Jonathan jaramillo 12/09/2020 01:45:00 PM EDT MEDENT ([facility] Outpatient [address] [facility] [address] 10/29/2020 12:00:00 AM EDT eCW1 ([facility]) Unknown [address] [facility] [address] 10/29/2020 12:00:00 AM EDT eCW1 ([facility]) Unknown [address] [facility] [address] 09/23/2020 12:00:00 AM EDT eCW1 ([facility]) Outpatient [address] [facility] [address] 09/22/2020 12:00:00 AM EDT eCW1 ([facility]) Outpatient Attender: Madhav Dacosta MD [id number] 07/21 02:39:33 PM EDT [facility] Out[facility] Attender: Madhav Dacosta MD [id number] 07/21 02:34:49 PM EDT [facility] Attender: Rita Diliberto PAReferrer: KRISTOFER REDD DO 08/05/2020 08:21:03 PM EDT [facility] Attender: Rita Diliberto PAReferrer: KRISTOFER REDD DO 08/05/2020 08:21:03 PM EDT [facility] Attender: Rita Yipiberto PAReferrer: KRISTOFER REDD DO 08/05/2020 08:21:03 PM EDT [facility] Attender: Rita Manzanareser: KRISTOFER AUTUMN REDD DO 08/05/2020 08:21:03 PM EDT [facility] Unknown [address] [facility] [address] 06/26/2020 12:00:00 AM EST eCW1 ([facility]) Outpatient [address] [facility] [address] 06/25/2020 12:00:00 AM EST eCW1 ([facility]) Outpatient [address] [facility] [address] 03/23/2020 12:00:00 AM EST eCW1 ([facility]) Attender: Rita Manzanareser: KRISTOFERCHADWICK REDD DO 02/05/2020 08:20:09 PM EDT [facility] Immunizations Vaccine Date Status Description Data Source(s) Pfizer #3 dose COVID-19 (given elsewhere) SARSCOV2 VAC 30MCG/0.3ML IM 10/26/2020 02:49:00 PM EDT completed eCW1 ([facility]) Pfizer #3 dose COVID-19 (given elsewhere) SARSCOV2 VAC 30MCG/0.3ML IM 10/26/2020 02:49:00 PM EDT completed eCW1 ([facility]) Pfizer #2 dose COVID-19(given elsewhere) SARSCOV2 VAC 30MCG/0.3ML IM 10/26/2020 02:49:00 PM EDT completed eCW1 ([facility]) Pfizer #2 dose COVID-19(given elsewhere) SARSCOV2 VAC 30MCG/0.3ML IM 10/26/2020 02:49:00 PM EDT completed eCW1 ([facility]) Pfizer #2 dose COVID-19(given elsewhere) SARSCOV2 VAC 30MCG/0.3ML IM 10/26/2020 02:49:00 PM EDT completed eCW1 ([facility]) Pfizer #2 dose COVID-19(given elsewhere) SARSCOV2 VAC 30MCG/0.3ML IM 10/26/2020 02:49:00 PM EDT completed eCW1 ([facility]) Pfizer #2 dose COVID-19(given elsewhere) SARSCOV2 VAC 30MCG/0.3ML IM 10/26/2020 02:49:00 PM EDT completed eCW1 ([facility]) COVID-19 VACCINE Pfizer 10/26/2020 12:00:00 AM EDT completed [facility] Vaccine Series Complete: YESThis Data wa s Submitted to [facility] Via [employer]. Pfizer #1 dose COVID-19 (given elsewhere) SARSCOV2 VAC 30MCG/0.3ML IM 10/05/2020 02:48:00 PM EDT completed eCW1 ([facility]) Pfizer #1 dose COVID-19 (given elsewhere) SARSCOV2 VAC 30MCG/0.3ML IM 10/05/2020 02:48:00 PM EDT completed eCW1 ([facility]) Pfizer #1 dose COVID-19(given elsewhere) SARSCOV2 VAC 30MCG/0.3ML IM 10/05/2020 02:48:00 PM EDT completed eCW1 ([facility]) Pfizer #1 dose COVID-19(given elsewhere) SARSCOV2 VAC 30MCG/0.3ML IM 10/05/2020 02:48:00 PM EDT completed eCW1 ([facility]) Pfizer #1 dose COVID-19(given elsewhere) SARSCOV2 VAC 30MCG/0.3ML IM 10/05/2020 02:48:00 PM EDT completed eCW1 ([facility]) Pfizer #1 dose COVID-19(given elsewhere) SARSCOV2 VAC 30MCG/0.3ML IM 10/05/2020 02:48:00 PM EDT completed eCW1 ([facility]) Pfizer #1 dose COVID-19(given elsewhere) SARSCOV2 VAC 30MCG/0.3ML IM 10/05/2020 02:48:00 PM EDT completed eCW1 ([facility]) COVID-19 VACCINE Pfizer 10/05/2020 12:00:00 AM EDT completed [facility] Vaccine Series Complete: NOThis Data was Submitted to [facility] Via [employer]. Medications Medication Brand Name Start Date Product Form Dose Route Admi nistrative Instructions Pharmacy Instructions Status Indications Reaction Description Data Source(s) celecoxib 200 MG Oral Capsule Celecoxib 200 MG Celecoxib 200 MG 03/11/2021 12:00:00 AM EDT 1.0 {capsule_with_food} [facility]am 15 MG Oral Tablet Meloxicam 15 MG Meloxicam 15 MG 03/11/2021 12:00:00 AM EDT 1.0 {tablet} active Meloxicam 1 5 MG [facility] celecoxib 200 MG Oral Capsule Celecoxib 200 MG Celecoxib 200 MG 03/11/2021 12:00:00 AM EDT 1.0 {capsule_with_food} active Celecoxib 200 MG [facility]CW1 ([facility]) meloxicam 15 MG Oral Tablet Meloxicam 15 MG Meloxicam 15 MG 03/11/2021 12:00:00 AM EDT 1.0 {tablet} active Meloxicam 1 5 MG [facility]CW[facility]) Baclofen 20 MG Oral Tablet Baclofen 20 MG 03/11/2021 12:00:00 AM ED T 1.0 {tablet} active Baclofen 20 MG eCW1 ([facility]) Baclofen 20 MG Oral Tablet Baclofen 20 MG 03/11/2021 12:00:00 AM ED T 1.0 {tablet} active Baclofen 20 MG eCW1 ([facility]) Amitriptyline Hydrochloride 10 MG Oral Tablet Amitript yline HCl 10 MG Amitriptyline HCl 10 MG 12/28/2020 12:00:00 AM EDT active Amitriptyline HCl 10 MG [facility]CW[facility]) Amitriptyline Hydrochloride 10 MG Oral Tablet Amitript yline HCl 10 MG Amitriptyline HCl 10 MG 12/28/2020 12:00:00 AM EDT active Amitriptyline HCl 10 MG [facility]CW1 ([facility]) Amitriptyline Hydrochloride 10 MG Oral Tablet Amitript yline HCl 10 MG Amitriptyline HCl 10 MG 12/28/2020 12:00:00 AM EDT suspended Amitriptyline HCl 10 MG [facility]CW1 ([facility]) Amitriptyline Hydrochloride 10 MG Oral Tablet Amitript yline HCl 10 MG Amitriptyline HCl 10 MG 12/28/2020 12:00:00 AM EDT suspended Amitriptyline HCl 10 MG [facility]CW1 ([facility]) Amitriptyline Hydrochloride 10 MG Oral Tablet Amitript yline HCl 10 MG Amitriptyline HCl 10 MG 12/28/2020 12:00:00 AM EDT active Amitriptyline HCl 10 MG [facility]CW1 ([facility]) Aviane 0.1-20 MG-MCG Aviane 0.1-20 MG-MCG 09/24/2020 12:00:00 AM ED T 1.0 {tablet} suspended Aviane 0.1-20 MG-MCG [facility]CW1 ([facility]) Aviane 0.1-20 MG-MCG Aviane 0.1-20 MG-MCG 09/24/2020 12:00:00 AM ED T 1.0 {tablet} active Aviane 0.1-20 MG-MCG eC W1 ([facility]) Aviane 0.1-20 MG-MCG Aviane 0.1-20 MG-MCG 09/24/2020 12:00:00 AM ED T 1.0 {tablet} suspended Aviane 0.1-20 MG-MCG eCW1 ([facility]) Aviane 0.1-20 MG-MCG Aviane 0.1-20 MG-MCG 09/24/2020 12:00:00 AM ED T 1.0 {tablet} active Aviane 0.1-20 MG-MCG eC W1 ([facility]) Aviane 0.1-20 MG-MCG Aviane 0.1-20 MG-MCG 09/24/2020 12:00:00 AM ED T 1.0 {tablet} active Aviane 0.1-20 MG-MCG eC W1 ([facility]) Aviane 0.1-20 MG-MCG Aviane 0.1-20 MG-MCG 09/24/2020 12:00:00 AM ED T 1.0 {tablet} active Aviane 0.1-20 MG-MCG eC W1 ([facility]) Aviane 0.1-20 MG-MCG Aviane 0.1-20 MG-MCG 09/24/2020 12:00:00 AM ED T 1.0 {tablet} active Aviane 0.1-20 MG-MCG eC W1 ([facility]) Aviane 0.1-20 MG-MCG Aviane 0.1-20 MG-MCG 09/24/2020 12:00:00 AM ED T 1.0 {tablet} active Aviane 0.1-20 MG-MCG eC W1 ([facility]) Aviane 0.1-20 MG-MCG Aviane 0.1-20 MG-MCG 09/24/2020 12:00:00 AM ED T 1.0 {tablet} active Aviane 0.1-20 MG-MCG eC W1 ([facility]) Seasonique 0.15-0.03 &0.01 MG Seasonique 0.15-0.03 &0.01 MG 09/22/2020 12:00:00 AM EDT 1.0 {tablet} suspended Seasoniq ue 0.15-0.03 &0.01 MG eCW1 ([facility]) Seasonique 0.15-0.03 &0.01 MG Seasonique 0.15-0.03 &0.01 MG 09/22/2020 12:00:00 AM EDT 1.0 {tablet} active Seasonique 0.15-0.03 &0.01 MG eCW1 ([facility]) Seasonique 0.15-0.03 &0.01 MG Seasonique 0.15-0.03 &0.01 MG 09/22/2020 12:00:00 AM EDT 1.0 {tablet} suspended Seasoniq ue 0.15-0.03 &0.01 MG eCW1 ([facility]) Seasonique 0.15-0.03 &0.01 MG Seasonique 0.15-0.03 &0.01 MG 09/22/2020 12:00:00 AM EDT 1.0 {tablet} active Seasonique 0.15-0.03 &0.01 MG [facility]CW[facility] Insurance Providers Payer name Policy type / Coverage type Policy ID Covered republican ID Covered republican's relationship to perez Policy Perez Plan Information [facility] [id number] CHILD [id number] BCBS EMPIRE [id number] CHILD [id number] BCBS EMPIRE [id number] CHILD [id number] [facility] MEDICAID [id number] S [id number] [facility] Community Plan Primary [id number] [facility] I [id number] Self [id number] [facility] COMMUNITY PLAN [id number] [facility] COMMUNITY PLAN [id number] [facility] MEDICAID [id number] S [id number] [facility] COMMUNITY PLAN [id number] 0 [id number] [facility] MEDICAID [id number] S [id number] Managed Care - [facility] Community Plan P [id number] S [id number] D Managed Care [facility] P [id number] S [id number] UN FB [id number] S [id number] [facility] MEDICAID [id number] S [id number] [facility] MEDICAID [id number] S [id number] Managed Care - [facility] Community Plan P [id number] S [id number] Medicaid S [id number] S [id number] [facility]-Medicaid [id number] [facility]-Medicaid [id number] MEDICAID [id number] SP [id number] [facility]-Medicaid [id number] [facility] [id number] ANSI-Medicaid [id number] ANSI-Medicaid [id number] ANSI-Commercial [id number] ANSI-Medicaid [id number] ANSI-Medicaid [id number] ANSI-Medicaid [id number] ANSI-Medicaid [id number] ANSI-Commercial [id number] ANSI-Commercial [id number] ANSI-Medicaid [id number] [facility] COMMUNITY PLAN [id number] BCBS EMPIRE [place] DIV [id number] VALUE OPTIONS OUTPATIENT CLAIM [id number] [facility] [id number] GF2 [id number] SELF PAY ONLY UNAVAILABLE UNAV AILABLE [facility] ([facility]) [id number] Self [id number] [facility] ([facility]) [id number] Self [id number] [facility] [id number] SP [id number] [facility] [id number] S [id number] [facility] [id number] FA2 [id number] SELF PAY UNAVAILABLE UNAVAILA BLE SELF PAY SP UNAVAILABLE UNAVAILA BLE [facility] [id number] SP [id number] [facility] O [id number] S [id number] Medicaid S [id number] S [id number] [facility] MEDICAID [id number] S [id number] UN FB [id number] S [id number] BCBS E[place]IRE [id number] CHILD [id number] [facility] [id number] CHILD [id number] [facility] O [id number] S [id number] D [facility] P [id number] S [id number] [facility]-Medicaid [id number] [facility]-Medicaid [id number] ANSI-Medicaid [id number] ANSI-Medicaid [id number] [facility] [id number] ANSI-Medicaid [id number] [employer] MEDICAID [id number] S [id number] [employer] MEDICAID [id number] S [id number] ANSI-Medicaid [id number] ANSI-Medicaid [id number] Problems, Conditions, and Diagnoses No Information Surgeries/Procedures Procedure Description Date Indications Data Source(s) OFFICE OUTPATIENT NEW 45 MINUTES 12/09/2020 12:00:00 A M EDT [facility] ([facility] ) Results ID Date Data Source [id number] 01/22/2021 01:29:00 PM EDT [facility] Name Value Range Interpretation Code Description Data Jessica rce(s) Supporting Document(s) SARS COVID ANTIGEN NEGATIVE [facility] This lab was ordered by SUSSY ayers nd [facility] by [facility]. ID Date Data Source LUIS M COVID AG (Point of Care) 01/22/2021 12:00:00 AM EDT eC W1 ([facility]) Name Value Range Interpretation Code Description Data Jessica rce(s) Supporting Document(s) NEGATIVE NEGATIVE LUIS M COVID ANTIGEN eCW1 ([facility]) ID Date Data Source [id number] 08/05/2020 09:15:00 AM EDT [facility] Name Value Range Interpretation Code Description Data Jessica rce(s) Supporting Document(s) Follow Up [facility] QTJDKt7vOcYADvBmWYAtHfzJAMohIVotLCUvB5F0JDxtYc6VFMrcamXmUKYhAc1+WNNzKC9cbv7vWKEq gMy [file] U9OcjBcvt5Di/NsbGD+RxLkiexQ7Ztl8WXRYuSXlFoH4eUUlZnJ3oCs3vZYyksYbrI4JtRnm+Ax6S/darío [file] 0ahc0FG/WcU+UoIcOpDIlVqiYazfvTaBRezS+w6/Darío [file] TWlc+Román/bAsg0iKU+DXuvyu79PODJdl5z1ReO305U [file] bottle label inspector/BYtqEZF3ZB64sJBu2pOCrCOJ74D32eqCfa9VGhyDssi2VJyUzfFnkU8ilYRvBKICjfKegQLIQoJA [file] 4G/spa consultant/umD6Gq2ysG3wpe59K74PTy+LqNtSx7brCR2EnDFLdUmezeKU+y5w1Umz6EYVNAal7SI5cVnnq [file] ga9M8lbCoilXVgfn0L4TYlhluEs01/Jn3xC/vlxZlbDIi40mwK6HKIZtBVM0q1yWKVaE0VOwIA8N/Flores E7cSnx9AvW5ffq07WLv7C5iysNsKTwU1KLZU4gpzAMf+5ZRTf1InY0vevZQ3ugqBCVVSwmBpk3G7zseY J4Axax1+aKlqim06b0+bkg/oCQhiaj2IosHoUFQRjb v4vDnlsUWH2+8cv1K1pNc3f0lLnq8rV3Xxb+EVMGtCLQwNE5IOX+j1Jn4cWsMiqJSaxTNAxfjLz2dRnB Abpo3DkoLPT6PfsRLclVi6WAbb2iT6t/30nmrISj/0XTvsyqVutmqHhy0gECKzocq8krcfX+CfY/zRKw mSljHNB08J1JXGxGyAZY2cmh4FnplrqGzzw58+2hGd qIomhbtnfCLwvYzlJiFl5tbaD0xlWozsL59yVFUfaXdfwW57CbRCKqZ4n/Qf3LRLq/G27A0i91RZx2Bn HnSLsjDOb+FlxETdA/miRlIx3T0HY8w40A3/JXkQtOWHrG2ZuU8f4zmVg558uvPDe0cpjJZDA7bfXpEB tIGc7FAnN2OJYLPiBthBFrJ9XVldZSm8/rd4lzGvzb +pHRpq2fA9XV7DE20M0h3iiWQ/pgd959Ujmx89ncjVGI5FEbg7uOx00myqMrFTVtMKI/MTNrvvfw4+1ST GRADE TEACHER Vrk/PJKA4KzMwuOqU8rOr/n1v74PjDN+HJSvDJ+VBZlIVlekGKt1+BvbRs4IiCOVb/pM9FFp5CHUGVsA 5fp5KL7Xwbirz5e9T3ZoAXLtZIZ/XkjQkklIxvTC3m 7b+F17jdAubvACTQ311kaPacrVVWRApj5j2Pw/R4V8eQC/hJqt1roPd1fg1s7IZ+mCDb7dMXaNSVxpp3 Wg6/WMb6cjgojZvxPGN8iycrW13e//MiDjXYi5+u+rJT9A0+65fA1+1f2Kc8d4qWh48sx5wla+YZShbL cIV+dx4YwPBTQJkAel+q2irWxcdIRth+/PzBUbPFNb VkeiNpchXPiEl2LUe9lGMUxbHNOh+35ccmy2nwCXBb3hXIctMssAuBp7aov4KJzeAfKQmgozMTzydJWq 7KDeXxV2193XQHfLiefslXRMta9FvaJ/BmjOCeILgi8vN5LA8So1Qw69KdPEv3wGxnlP+XnkXZiBb6i1 rq0K1d2e+tyllWzqy8B/W1outPGUAds9Y4hOui6apK cnK8HK6bi81Cd9okN4crDVuLxH/hkte8sWW5qob/lZ+MATA/PS7GKe9CIpicoAY3jzMJusJlrRoO5BAFa [file] closing machine operator/4VOrtibdGj18SUKBXx6I43Nqef0AyLYhttbm8U [file] /Mda+r/compliance director/ySutXjVq59TYhb+yA2/Ae3Sjw7Jc+Wh [file] mqpHBr2LEXa48mlqH84m7u+mender hand+Y5C4b8pVgt0929e 0AWjbboDV/ulZz8guNVB1mYSCiXDHm4r7ZeTrEDcMp3kSTvU1jNjIgFVx+MDXArYcZdcndfNh5CE/azV /JuF3ccfXm0AVEI5ZB88IJNWk85ildzzv+2IrrkQVS3HIMr2GJhbUfN0UhqwLT7y2mZrmPG7Q7w3hy0J hdt/raqR++ERZs4sXIdJ+pI9c0+uyG0D/16ZcngH0n UshU3jceeeTjX4vEy0OlJGQWpgkq5ioqGaxI5uzu0wpOt0php7eFay9oOTYJegYE8dY9KFq+cJHnoQp6 a4VkrSKMy9N9weUt80FIfxiQ3z9itvyqm4pYGPkMcxLsrwX7mMg1sOY9VQCGG5r48z/EP64qjYjbvvU9 V5cm0b+9tJHJ2o6nPwOMyOXQi10XrL9eq1SPubFr+B LtOSXHoqPVMShJ4cFoSm8iNZg6qQYesU17f5Q9VEg5+z81W02O92md6sqX8rOtJtI/AjNV7TyW/6XgAr jvYGRJhLxb7j7bPUckN1VlD7euPVkQkbzyxlN00KoBpaMbhXl4XmwOtjGRhrtCyxzLTnsrKfFKA7kExG Civ7W1xsen1P2/PVblKU5yGQXqgWJoKUrSyXrZPvbU TvaN5SgKgoQndasHR0VNjvhINdsOgH9BfGwoC871VwT/Hvp+5SbvkvMECwRzvqwPDaUB8BadxM+KYhUl bE0SKq9ZhyAN6ElbG5dxgRdjYyYHnxpw1oX3KyIWdwoXwNkpwgUj6NHGsrB4e2/Vq9+gbA3jdRkL9+ADRIEL [file] supervisor+Bj [file] 3kxDmUTOrt4cqMAMSYGN+motor hotel manager+PrIcNe5LPuB/74p8hh [file] KCDO7/256hkZE0DA2xpmEDIaSy6YoIMbZToQ1k+ [file] XkfJ0VHN0jbvzoYneNYk3/uouSn8MAkAI449u0g6ZcjiL3u/diamond picker/tJmQb36fNqrLAo2gc1FXlQNqhcY3 845R79+INpxJq1XN1aN2FpJgWBRmkOrPuoxpuQ/lE7gMlf4yWESkVgAEDgY+G35gHYyZPZCr4yBnn+8I 86/PB0vrfOori4i8h+BtsHYm2YSfiHuP2VSZQr0Vdo 6+O8hO1YmlMsyM0+4OjKu2fW/FCvebc9vNmGZm4cdrTSX6CAVOXdE9bwc+ZZLXDBrsIRnZGT3UqeTVsj +yrN9p43QTdcEJvJ0RfTJapPrkQT/37T1wu9773yv8aTfZ1dh6rlgH9p2lbjG6pu+d0snadaeEhsfYOS X7O/MlWw7jzyQ4LnZa1PvWLrsJPKR5dOWQ6bWidwkP l5Up76lGEl8PaZ7PLsRBXrANPom4F2qT9L+BYir2PTA7qgkduCa4STSYe9rOYM0zL2qVIm4ZOe33MPJ3 IuPqqIczih5w9gFKeH5W6u9NvIyAcpAGlCVZARQpF+aDkU7TZbUBDlS8U4fbOOop9lkBKJ+gK5My++v9 63ky2/LDlsoH+B/AVgxy2/hzfQdyNcBW1ovsEq9QKf zLjaLjiRCHiF7bIJL+w3EMwDPstNdtqKntaOS8Uwv6pGuUBJwKbP5Lqgpd2shGodFsu3N7m0cY3/lgtu lJN5icGB7cdOkIbdAUq4tliKqQLw7SA+zctKuFlyH7AITiFHx5yGlPgKF5qQ3kH6q3O98KZlaffx+EjK W94e/UOzmJ3TmF8oZXXGaxxfrPCsvXuCDIE33d3cTr h0tHXxGtDRRcly5rqt+HYTpbKQd8XBQ947YJO06RAfHLbyl78MH97Wz9ntDQOm7GkBqReYd6Tp98Ns2s i/XX+3VLvuitUnn3lNXXrY23R6+bnFvROx/R4aDeV7+7LT7Ie+Ji2yruC49uVDDCCDAg8A2el5rLgs3Z +GmPUSIrCQwGtE6CfPimsmb6Qqz3Y+Mason/RGp7Sy0I0 [file] NzCjUuIx2ZQQ32nC5C7K6bdwBUY3BKQICmO+mBx57qz219Zk0LwQIjYj34PVdUntyLKX//rGN43TU+Swine Genetics Researcher [file] 8p1+eZ+Concepción+hmtEOLYJdIC/jqZdFtyyiHTw6LS79radlcyjNZK8kxfrWmEDFVs1cETeYluWvtbCNUrZQ [file] //oDvVWHZwk5n520g/vJftZvjls0+UrRvMhKimA/Darío/QDtykKGHYf70mXnJoeGy+PVhsJ7NZLOsYqPKG [file] PdUks3nFaB7MyRV0zOM08klJjQDUzqaDdBvi+SUtsiRXZWydJovyEo7etXa4V3jA6XL5JTg5HOZHR/Mason m3XdJ5X+61dPLFXjwr5/+uEB73OgUosrtOoZOuZOhD SZ8hmBB/8E6y6cvpCeUM60GfcMroFbZuuTK+0hdgKKsU1ccL52p1V8DOkt0HztZrpJQYRHbPQWulqQS7 qznZQulHvIVHPHm0+8yVmx732v+iu154U/riwNyUNmIt5XuFuHsQ57N+yVj9O78wTmpXzg1m2f9+4hy5 Gy2sD1t6hSs9GON0lTMptBShGZHBUaWYAjVjKU0zNZ Iy34GgV4PmU0IyB1GyPuuHIdoDJCCdbzDIVbuj+8OoBVsvtlE9jF7MmKMgflCs8NsiOKZQg8hh/n5WFy IOpVby0cuTLf5uGYseoHt/LyWF44y5Gfzhl6QJGlwaF5P8EwB58OHgRqtMxx1WZOBa0V5xfXLSxWsWwp 9HtmO3DGFn4YW1xlmiT3+WsurBvDlAdJTzPYRKK3dh ST2ZuCF80mJ8LAp1AA4NVkRodcoHd2DXY/Wm9iF+n4DMPzPiQ7F1klp+Ossrq9rlUXCx6KxmA+jLg6ki /x6L3N3EP1BW9sxyxQS5Tb7KP0veXFOzF82RyJDGz49wZu0+hM85FQMsSi7aQkWT48Oe07yayg8sQgBj KxWrwNgdYviOWfcpBzhCpXHqhEybhm6k9CyZlQcau+ Wli+7BphotDoiRvQy4vw1XKTUtPgxWdN96OB8UfK90S14GzXFH9U41qHoHIVgyTlTY40LkF/CFLDPCaC Q7/HHMoAzicdlTanusccRBXeAsZEIjIcdFeSIVC4onepDknuMbEKzyV4HtwtTq9Fn86oB3U+UBotGHk3 sTX8kMNSvPo6D5GpXFyEY8RGn4WNroH42B3o8beYeP XdJhDkm2zdMaUTFVh2xhXZYCs4mQolskY0y0lwsFsCPs2VuOwqxrFXiDQinCZRI3Y0Fi+psTY4Yyhk3W pGyaFw4hNltrfJ3xdMswRUPZIlNNFg8qfdSylPmQayfku9ZO7B/XTkdlvN0tiDgmli08iQ0szOD5/Jeremías [file] lECFgguHSC6Kd41Jbdp2i46n7g7OZYj/DARÍO+YkvLhrx [file] sales development associate+xdubQJZDqLa8OjQNFSHtO8pmAqH5fZgiorg+cHYjKDca [file] [facility]/j6RyvtOlQsDD0zfxp62gCXpUHM25fZZIsCIXn95xuaD6QsOyDjtJqxCz1gjluTv6edgSck04Z6g lPUKdQ/fjTQQjebu8a0Ia96usOoK6Yjs7XYSpvdP0E 6ASNSNEp4ZjByo74hFCnR8MuqqiE98Itq2V2KK/8hgbgw3F4M6MtZ5E1h6bVg9PkCAYJXMzeFVo2PF0o luDuvcHkRdEH2ca8vaDnHJ0iXcTP3/oYuhHZsNnsNq1184YcF1zfEt3kOnOZ1XAjeM7ELCHjKAPj+Donny [file] UY1xYj8eplAqJvOMuQiOe3mY/gUL+hboB8SIsfxVjj6uWga4ulZgvXXr9KEbe+xNbXpCtlPMZW/BB+motor hotel manager [file] lRxwfvkMV9yAkp/X5G4j7ijT5oIA2Iur2XOx+iYsDBwiPXsV3cAdOt9xa+GgL8M/DPwD8D/Felicita/A8+Zm g9GLRCz0vCXRqcDyZVybvc6AfUNdTYwhDczNoaDngdo0vhgFPVGhk/nda9w4px1YN1sPRvq7ouf3f0h/ 5y7r3mmC0FVGXy22da3lI7AelwYIuAvdYn3qJ+fs1P u0rNBt4DHQlkgEOrTM7EcSXly9r9QkkYJdVXzc92FT0b4fpWdEp51CmSGc9uqb7q2F0dTfwBNcnc7L1a 480fEu/pBpjrc9IN3FXkdHam5x+5+G7vMXoy+oy5YqAhxRYt+Rq8XbZidjl7N6MseCUfOsG69o3g+aiW pWQs7flM795VPDM3gCWCpmHoZAsGxhnafamTt/42aO EwWcTZuHXOOZ0HSHeMXONYO2u/mMYM/CoSBuaYklEqKC3oTwuobYy5srEbO8rhNMBLoEca9zcFYOiZdq iQv/ninvq9BxI2THWDJyJ6AQJa9J24KxwrzcHWg1noPfC8Ibq/AJyqFgDUbDdsikyzOcNQDvvALibrEQ WY/j6YpM7H7OGLYOOeazE2ztlxxAmjP3jOA84m2cNb 2ARFBtjmXKDlzZz5IvNeUuM6psnstY8R4tS/VFtzTxgA+Swine Genetics Researcher+q+deQVe07VJ+toL8vuxl0EoaRF8DQzM0 [file] lsWHKY0k9LAuVoLi0EVXRKUB9WF0ZNRXAOWKpwjQCL x92rakoL6XcU2FA4H/3WUSiGDNmpeJyJa3Rzlx+qkrGiNC9MVNIJD+MgMUZ3yKVr7xYgSdq7D1yBWsS3 NRXy+oo7h/afdfrzxqJtMvrwZ0Q2PyPfarJE6MGUzkWsfzv4hQNVgxmAozQZcEaMTK9PpJQEoLexsxlp od1KfqBYcg+YygfASnXM9jMS5FouUPhtStTNNb8Ac+ /bGF3SQapgWl2+z8jlAv6sdVHk30sXIb5GVT8jWyVJlpANQkSu8plozOGxbEHkz0yxrge+KThYqo/HvA n23weYS+8T3BDYEBvNFsWh4qC8f+Uh1wKUN3ue7ucpbf71xLs/st5TZVX8HbYLUJb1OASBBWUy1J/rubber stamp maker [file] JEbz+zPgvZQTs18x92WOkvi6j+County Director Welfare+SImyc5qbFDmb [file] Pj7lWZxJrX+Darío+5scTa00Xdy5aay8bR8cNl2Uyqvlv [file] Swine Genetics Researcher+a5YiNcuuMKqh1t+aW/LVFInS7foJshEUkEPkJJu Wu5xSTqx1C+vpLPCQa41grogK0N4kITqi45ZMe1gDSryL7HKgChN7LBfWfCrmoExi+WAi2L9e3d5h1gi c0l+Ogc+Y5eHwwDN5pZL9D3PipIK5tuAkyIU+lwiEfdDWmkYaRptGzdR27wh0+U46LU7i7MJyli6TpxV zIsp7/drkVwn3sX4+draiHCbICzl9bukjUWsyLN8HH /zgj8KBhaFfNGzvvXxb8p+mOThj7kURpS91Kw2tk2vyyKMuk2t4K9ttK9qcN5HCXG84X1w21V5OMj7tR VwB6pOmkG64PfiKNNZi5+5lgkk8vrlwV3eg83ZpRAGwOqrxTZUIzD1c1gsB3vHYcaZdn0VyMNjdxiXng FAUNa0SfH8fe+hsOkLQ6CuKZVPxMpJvZwkY2car0B/ O2tDqzQL8MF5uDhtV6w+za7agWOLYQCUU5CSeYTeJgeVU0zHd4WSZ+MXvAFOeZeFvbaukZ1swVwUH3rE G8ySXHCjJ91x+2kgrxIiRFULnbNB27D3C1wwRQ9cA8nKQRbQvR3ChndwOfrMB1T2Hx5XnPJGVdrH/Johnathan [file] SYfQNrLp6byvzQ99HfS2rujYMkYO9fEM4cbCfxt/Medical Assembler [file] BDCNFG1HmSuHKJNWREJm4iaBLj+ByP1+JSDU0s7YaB qNw9nJEN/3UhHAdJ9yt2Pf6WhBZYosYT0JLphvgvCJDH6nOMWKWLHbKHicouOtdHUhPR6EOdLkKI8rwm 4FMoQ0PRH7gVGaPx3ULPH8BeJjUE3XBQVVK6H= ID Date Data Source HCG, SERUM QUANTITATIVE 06/25/2020 12:00:00 AM EST eCW1 ([facility]) Name Value Range Interpretation Code Description Data Jessica rce(s) Supporting Document(s) < 1.0 HCG, SERUM QUANTITATIVE [facility] ID Date Data Source [id number] 02/05/2020 11:15:00 AM EDT [facility] Name Value Range Interpretation Code Description Data Jessica rce(s) Supporting Document(s) Follow Up [facility] WZCWEs5wFqKZMmFqPIUwIlpULLkoDCmuCYIsA7B7WAytTt7CNBgavyRcKGZlZp8+ACUrTV3gah3gSDOr gMy 3dFGFdGmwkJ0XtQYFtd50XACZnGDxZFjVkLyRuQFR6XuZqCVB5EGE5XcIdYfhzVD2qEID8CCRvSZmuHH FvTRCoQSCpSAV5QC4qBGvxUDliQf7CVK2ch8IyDJRhGJDwWveITHavDQqiPGBcSZWtJULyD257nnGeZR 3HlNXwWNz5ITKoCuL2PIXfGxC6SWImNkGmOdVsGDXp O4Biy225tyJlefD3AP8CB8NpYZV4MTu9S3wdIoCrVLVpYCFxWO7cCkD0RVYdWi3QuCscIXToUYYnBg5B yTa7HTK0PEMyCc9+Pj4+Gv6dqrXaKkkFGNAzAT0gqh22HA9KdCBrOF6SEEndS56wXPzlNn07XYdbCYWk IaCaGBx0Ma4cQrAbc8NkV2TuZIr7Q8kSWccdP4UcIQ vdOR7eJOF4OCArVy2+Ig6vLBLhLY27ALXrGSLTO4NsoeDqsrVuPAe0CNRiWm6+Zx2qdqLdRqhLJIAbGM 5pbi34QP1VFU9pmNleMtI1GJgiT65sfSWmA9wlTxNpK4FybMuhBFLsYH5oP0AoMJthYKRpMF1ycyJdaR 4ZsLt3YRYsPz3VnUB7IXZzJ46hVJCrQTBFBPQhw7Yp HV7Sq0ubylHgOWIzOI9CBXHcY5XQX5RhB4uqoVcoTQQiVY8ILFlvrTWkSVp7KK2AcIAqHAFuD86wmU9y ZF20JBq+ZjN5ekYksS1PaWjkc9RHGK468u9C0+RpMm7WtWnXIXFXJFodDZUE4B0FoPaJVMIQt5Qhh2yv 7gwafAYd/OS/9208uE0qigf5gd4cjsd29k3E16um97 [file] SkeRpikRMfqjs767u/Swine Genetics Researcher/VMMxm2kb3iZDeydIO2puZXQoriHVYHF7DPufQYNe0UdMwYwWFw1oZxP+EAo [file] 2pKdECO4Jqz46Z/Darío+PT/vjUldPyzc38RK/mE1AEF7X0bnNbCfudZHFX9Kc4NRZxd4dFocSwAMX4Ij3i [file] EdE8+Darío/oAq4IaH5p4K3Y0Fago+zWwgtqme8OjAGAE [file] UVgBpFmHKjrYUqO3RmQyoug/stick welder/EYyJJCiiiHJb88 [file] /HQLeH12UEvo98HV8XeGVgnMLYealn6RfE8XU [file] GgsxVI3aPz/nailer hand+SODWLqdj3IE3pfzHp9P1Jq1oEEh9Gf9Jp17ouIMAk9wsF5GFS3r5qe8n2B7zKQr7z [file] +Fvfk20uCYsBIwwHQF/sUiaRzLj7xpAwDt1eh39T4snkOHONV4hnL7fejIcG1MyhY7/DELIVERY RECRUITER+uWkl0O0q02 [file] QVPpy4ajLGL20wU/H53lxQbPZyJUnJlmj3+motor hotel manager/ABj/ [file] corporate development [file] 0Tr9/ERC5OHEPnFRG57Zicw9H8eUvnkA5amgRvm+q5w1GR9ba/MARY ELLEN+1uvtkUbvjUyDT8r3+H1uz+yMzk [file] rv38shjoQ9EBdnHgscbNlgglywaib5cY6atVJxK9cv 84FUobLA7xlcRYVObt2uL4G3JZE/eh5RS6vi68S4YsvYlgmX0JJxGQWyxJ48bGk7bR1Pivxnp41hVdC4 KSxo+GuUZqy59FHGXuK7Hq4sFpvyLP+BjRuq1oO0nIVKBycs6einxL+PtvY+DELIVERY RECRUITER+p+o/LjKZZM7R0G9uw [file] Swine Genetics Researcher/rQXV6KbenkyP3+ClpAHaBhhnRdJtMgJzF7I2mDW erupMcoKKa5kIUcwF5/7XjzHj1R8+E60QU5TES4jmfGYmLjUD97lgKif+G/gYdel0Me2ttW0R3xP3x2+ b9mG0+Ctz4TaleDiOZTBTeEeaLkAbrKiJyY6CYrDmrJlnN4+zuxbxmlqBezUtDenL9qPsD6qqTGCpjM9 gStGIGoPtD43F+OSLKY9pEUHKSm/5pjpe0q8dYQH+F 82n9/oc4dT0yNeRIafUMqITqbHxJFwI4nQ06RS65ZdxuTsgmxuRdZOI22R3/rNdUeLv9UzFCPuhWDhVE /U2XAnQRdLqbcQNSkqnmzA6Mh7uOjZTQDuo9Fk03frii3H8HrhaVsQuL7jFB5tSboYMZSA/UxPXK7xx0 JQNm06hF23uZbAduVCUSdcqkOiwClLAa7n5/HNYZr8 M7YottcSM3hs0v4MqYcIst8LpEyoTff6ye/B45rY6AXMnvu6AQcTeMEFm31Q72DuXzdBuw4++hpvC0kg OR6gUeIbJsJNy0OWh2hFRwEFjxf5zrp1bN8bFxQMqMGV5b284sRZljRdiuzooOLy6MKbwJ2pt/FUts12 JZR/1bz86JdZeCmKgjMf/CWkmTD6qoadp6h3tmv4fW ezsZaXy/p09DC9bVdhojNhRyggTZsSDDAk9Hr6LycwhOhtoaXGc8XVjn8RXtirXTwlx8n+8KoDHNptcO /LR13yaukJhJhJOAa0MsyikRfW2dw7ZjXkE1ljRGxMP2ZFBe5Ef2Cc0HUVXGHEsXU0aJ//lNCwW17+8g 1+FZ+t9vukyd5kzgieAl6G+NYOI20u8oDe10bLb9Zo tfqw0+lSDdCWLnFrGwWF+6v15TR6e9irLx4aMbTV4X9ISQSj6YzwpykYiXB9Sxt/b4fHHtyIJBC/OJdh 8QtkrwaIrfEmQYu0Vk+Vptn7Gqi+2fca19yioiQ7E1w8eK0n0EkMBsIKPZ72jXtStNoprtFxLu3yjA1f 31oK2W5486kph7UEuIeH++0Gm457Y2iXim7pM/1eFU [file] IJrq7LdrW/5mN8EHVWt4qjeQ+hAeqei1rwVmqi5AbYGpjOj7YEOlpgy1rI2sVpyJ/pgNtz96jYsqf/darío [file] KryAijZUFd9U+HGyC4xL32gcX8VseaMtvlQC89h/Darío [file] lpbrCBtT6sjfDx+ARTIS/Fsl3AwXy8NJk8KEPJ7d7JLD WfTP2HIqQqw1GlWe08L6sq4smmz13LWgEZG6p945mJisIiw/hYlsBo0owniL0oHOMuhFi7EyBhvxcmks pXxFaTbhr81T4GFZgPR022+ZKC/dW8tjUbe6IW4O5xyzzIvaLfKILlBp2Xk0AStrx+NGaUI1mNUi+3sZ 8Pl7SeDUj6FLmtn6MLZijwunzcoRCLzu8zIFtnOKLt /b3CT842cBDsakKVev6IkgQbGB1RZKKHjNAFGg/RWluG4WVWpj1GWpP4jHeT9zO8rxgL5oceuX+/zj5J l5QqKu0lq7lSlaMoxgdLXH03mGLd+UBs1cStaTiAa64e4Ve3rmP6R/lWLU11AZrkZ/1rcxObpj//+708 OBzcol3o4k4F4ageBeHbIDNhEJrKBEG0eZoSSSZACP LCbhLkXTjnAaA9ZSSkOnLAaNSW0OLZ32RvDWjcdRQGhQeoszcnKo9gwhm+qqnv/bF+fjnr696I0ic685 Ty28A8Z322q2ALbNLdtiJ0caOj8hkI0hjoZxeEpnIcRDPET3VunpBr9B2QkFkk0yuEPCtgINyBlPm265 director clinical data+F8S/hTf4p93W4d61kRVZ005fmGiDHX03uG02Vv JAp7VdsWjpnvLVKwalpk7Huzu6myPqjFcO+i74kR19B0fw29vxlM5NTBc3qOYYWVBGPjUAmmcYyHWgq1 fuw/Bk8pjqcFqwPlUDx5QpDhX+FRiBaQcWDpmIiS0TtEzbbIYfs1GekgWjhmAIQS0ZGbH5aaUV+ji3IY ERBB517QckFAtfEblCApNDWDclwj6+K6hKhfhYeatQ RWIn5KasRHkwcK2SRYiWP0Syg3Lud3Nvg4uoiEa5gwp0bnZJ8lBx0eW2PVC4rMUF0iLVCrdmRKIIqlkg Sn/7XtpyUDgWsfu1I86wB2PeYfB10mExX5vkDAIeFsY/qMlCh3JUUS/0fiCI6pDHGa88dbN2Zvnf16Ms xRot8lrh8VEFgDmZnPkhDGYEDICZnPqampkoKoF/alves [file] banbury operator/kqdcU1jG9bNIdx/3LWKVIGCzrmeXZWPtkN2k1y [file] [facility]+QBOZqburz7C5K+7NSgF2GiWviFYbn1F1VSIX96gSDRKCAJyHLnkukYXjLHYWFqJjbezWQC5GRb [file] u8XhODAMjoeghuPtnfkgwzsimFf2slyC4A1yzkhQ8okkjfUyrpt6R6BiCg0Eb3M14kVXDELJgvGgm/motor hotel manager [file] qtTcarD+E+I/Bi3Z5h2b/e5aUpuA09M+/oqy8LZVn/Kv/+application support consultant+oooO6yx2dEmmGnAlr66kZdIQTjjjPw [file] 9G ID Date Data Source [id number] 01/22/2020 10:15:00 AM EDT [facility] Name Value Range Interpretation Code Description Data Jessica rce(s) Supporting Document(s) EGD-Colonoscopy [facility] QESQAk1iStLNXmHtFMQmAolINFljCEdxUZIyB3X0JIklVf9TUYmgjcVcJVSeIu9+EDLbFH9djt6yQGWc gMy [file] 9QCdQmgdgTWyc6HIXnOj3NcspO41oK15HUmYfAa41WhbJ/BxVdBCE/hhnar/1ST GRADE TEACHER+rvDLXp+c6O8dA1YzD [file] MUw65MGDFEyigsnd4V575IS5jzOOIY0fq5LvPmbGPcHpsWUE28govY8/lEeyzIUS0Y81I3xpWidb+studio operator [file] Medical Assembler/1EuniawRhhbQIcHQiGqjcbjDUa+W47G6qO3Wx/zylpzaBCOECAb2sN8ddgu8iiERW0bqYZJpCeb4y [file] r6aMYtU8Ar1pmRbVbtrhotq4ZuMeWYjKz2zblZrmMvT06oJ87VevSdBKO1a3LjkAL7W3MB587vL3/SANTA YNEZ [file] p8D8+compliance [file] NEURO UROLOGIST/QKRpJ6EchCh2chd4Na2Oqy/IUiVAp2XkR2cCmrzOqTElN6n8yc77El8JLAJmWQpRauQmD9BqacR/ [file] FV2uYu/48/Darío/uxf4DwQJ/Y5nmmC7368JeI6dIvRDjYw3GifL6GAVM51TYtfB7cZkLtLi22pjuzFW9RB [file] TAxuV/4ce4EcQngnN+life assurance representative+Dmtj1s05ktlwV4vQkPbtGRJ+1Ph8655bMrXndBzPb+QKAdkjxDCsvkPPlPi [file] +qU4lpKNpvDAow09zDTBX1BzJKgo7c92h7kO9P+mobile home set up person [file] vhf0d+UUfcxg8kmMim4gFhEYrmkImfwVEKOwZWP+iuc5jb33xhcJxiOmihjnukZPQBVQ/I+n7IIjz/motor hotel manager [file] 4iaxoK/q0sVjzsYGyF/P/Vft+yHLCHbYbNo0/iIxND4IkBFYrCnhkzZbldV/leasing specialist/2KxnT+VMtEucmfyP [file] zVkYU/BKND/+/1ST GRADE TEACHER/T7U1EO3/+H/fD3vv5TTOpW4RC5 WnaufPZg6dFuNUbY6qz2YMTO0q7xWN5r8cbLjywB/WKcMxryJwwmNJO8K4+W/iobf0KAqGdfe4btjGDd weXPycSwvg+Fy8KnQHuV3Mz1Bbpi/S+kf9dnUYo+Lrvek1K0ZwdXQPPg7MHDotwE2fry01ZaRgb1Iwp0 Rc6B2pIHhUduEEC7LtlL4J4+4t4Sjz8BUqRZofS3Jz pHzHSa2AOaIopRfjS3C94rhijSibdkk/vsowhZwCRUgJs8We2+nCSqz1Bspi/CPP/ayeaCXhCoJx+n1J 7VDijK3pZ+Vd6EVtv169AjoEj45Rd8/g/nXesRyzrO6PVSVk/6U0mHZ7MJ6sWm/CAYOh+eJOLhKYEcop 0CiCjmac27SJyQn0ZW7zve62yBcGen+CEI5nwK2uBF SwgnSnj9YdZGZ+Ip4io8zzhj4ybx5/FwXVLDzioko+K+P9wmpitPW2NP7ov71EV4bYFroNZxKjVeGZlR m7uYLI08ib3Ir0IJexWPhgPDookkpP1qygy/TfNBtmzYJ/7EBKtUJvzRYA3KxZxa9NDj/NhvMJuTd2s1 riFTP0GzwH7FGrGiJyH8zLop7isK9i+LQeal368r/H /longoria//Mu//Mu//Mu//Mu//Mu//Mu//D+ybhMM8xSEZsX8WkjERo67qie0gFjUpCh7qPxt0T0o2JLD7Zdv [file] Satcy/z/RhfsR9Ymq3vrq90T/6DbYa2YsbVSciaBWDZOYoQQnkoo9anT3lpY2W0yhmC67icUO2FFs94J3 Ylr2lDNPn3jMv3ggayW+n5TEPmrhm/QtXPFovcTbf/rftpg3LoiecEFgUuzyBn/ndxm1JtTMaLC1y/1ST GRADE TEACHER [file] [id number] ID Date Data Source [id number] 01/17/2020 10:45:00 AM EDT [facility] Name Value Range Interpretation Code Description Data Jessica rce(s) Supporting Document(s) SARS coronavirus 2 RNA Not Detected [facility] This lab was ordered by [facility] and reported by [facility]. Procedure Social History Code Duration Value Status Description Data Source(s ) Smoking 03/11/2021 12:00:00 AM EDT Current Smoker completed [facility] 03/11/2021 12:00:00 AM EDT Current Smoker completed Curre nt Smoker eCW1 ([facility]) Smoking 01/22/2021 12:00:00 AM EDT Current Smoker completed Curre nt Smoker eCW1 ([facility]) Smoking 01/22/2021 12:00:00 AM EDT Current Smoker completed Curre nt Smoker eCW1 ([facility]) Smoking 12/28/2020 12:00:00 AM EDT Current Smoker completed Curre nt Smoker eCW1 ([facility]) Smoking 10/29/2020 12:00:00 AM EDT Current Smoker completed Curre nt Smoker eCW1 ([facility]) Smoking 10/29/2020 12:00:00 AM EDT Current Smoker completed Curre nt Smoker eCW1 ([facility]) Smoking 09/22/2020 12:00:00 AM EDT Current Smoker completed Curre nt Smoker eCW1 ([facility]) Smoking 09/22/2020 12:00:00 AM EDT Current Smoker completed Curre nt Smoker eCW1 ([facility]) Smoking 06/25/2020 12:00:00 AM EST Current Smoker completed Curre nt Smoker eCW1 ([facility]) Smoking 06/25/2020 12:00:00 AM EST Current Smoker completed Curre nt Smoker eCW1 ([facility]) Smoking 03/23/2020 12:00:00 AM EST Current Smoker completed Curre nt Smoker eCW1 ([facility]) Vital Signs ID Date Data Source UNK Name Value Range Interpretation Code Description Data Source(s) Body weight 131 [lb_av] 131 [lb_av] eCW1 ([facility]) Body height 65 [in_i] 65 [in_i] eCW1 ([facility]) Body mass index (BMI) [Ratio] 21.80 kg/m2 21.80 kg/m2 eCW1 ([facility]) Heart rate 102 /min 102 /min eCW1 ([facility]) Respiratory rate 16 /min 16 /min eCW1 ([facility]) Body temperature 99.9 [degF] 99.9 [degF] eCW[facility] ( [facility]) Systolic blood pressure 123 mm[Hg] 123 mm[Hg] e CW1 ([facility]) Diastolic blood pressure 82 mm[Hg] 82 mm[Hg] eCW1 ([facility]) Body weight 129.8 [lb_av] 129.8 [lb_av] eCW1 ([facility]) Body weight 58.88 kg 58.88 kg eCW1 ([facility]) Body height 65 [in_i] 65 [in_i] eCW1 ([facility]) Body mass index (BMI) [Ratio] 21.60 kg/m2 21.60 kg/m2 eCW1 ([facility]) Heart rate 93 /min 93 /min eCW1 ([facility]) Respiratory rate 16 /min 16 /min eCW1 ([facility]) Body temperature 98.5 [degF] 98.5 [degF] eCW1 ( [facility]) Systolic blood pressure 126 mm[Hg] 126 mm[Hg] e CW1 ([facility]) Diastolic blood pressure 73 mm[Hg] 73 mm[Hg] eCW1 ([facility]) Systolic blood pressure 112 mm[Hg] 112 mm[Hg] Sera RODRÍGUEZ ([facility]) Diastolic blood pressure 64 mm[Hg] 64 mm[Hg] [facility] ([facility]) Body height 65 [in_i] 65 [in_i] [facility] ([facility]) 5'5" Body weight 131.00 [lb_av] 131.00 [lb_av] MEDEN T ([facility]) Body mass index (BMI) [Ratio] 21.8 kg/m2 21.8 k g/m2 [facility] ([facility]) [place] body weight 125 [lb_av] 125 [lb_av] MEDEN T ([facility]) Body weight 59.422 kg 59.422 kg [facility] ([facility]) Body surface area Derived from formula 1.65 m2 1.65 m2 [facility] ([facility]) Body weight 132 [lb_av] 132 [lb_av] eCW1 ([facility]) Body height 65 [in_i] 65 [in_i] eCW1 ([facility]) Body mass index (BMI) [Ratio] 21.96 kg/m2 21.96 kg/m2 W1 ([facility]) Heart rate 104 /min 104 /min W1 ([facility]) Respiratory rate 16 /min 16 /min W1 ([facility]) Body temperature 99.7 [degF] 99.7 [degF] eCW1 ( [facility]) Systolic blood pressure 113 mm[Hg] 113 mm[Hg] e CW1 ([facility]) Diastolic blood pressure 74 mm[Hg] 74 mm[Hg] eCW1 ([facility]) Body temperature 99.4 [degF] 99.4 [degF] eCW1 ( [facility]) Body weight 129 [lb_av] 129 [lb_av] eCW1 ([facility]) Body height 65 [in_i] 65 [in_i] eCW1 ([facility]) Systolic blood pressure 120 mm[Hg] 120 mm[Hg] e CW1 ([facility]) Body mass index (BMI) [Ratio] 21.46 kg/m2 21.46 kg/m2 eCW1 ([facility]) Heart rate 106 /min 106 /min eCW1 ([facility]) Respiratory rate 16 /min 16 /min eCW1 ([facility]) Diastolic blood pressure 82 mm[Hg] 82 mm[Hg] eCW1 ([facility]) Body weight 132.12 [lb_av] 132.12 [lb_av] eCW1 ([facility]) Body height 65 [in_i] 65 [in_i] eCW1 ([facility]) Body mass index (BMI) [Ratio] 21.98 kg/m2 21.98 kg/m2 eCW1 ([facility]) Heart rate 116 /min 116 /min eCW1 ([facility]) Respiratory rate 16 /min 16 /min eCW1 ([facility]) Body temperature 99.0 [degF] 99.0 [degF] eCW1 ( [facility]) Systolic blood pressure 112 mm[Hg] 112 mm[Hg] e CW1 ([facility] [facility] Diastolic blood pressure 75 mm[Hg] 75 mm[Hg] [facility] Body weight 130 [lb_av] 130 [lb_av] eCW1 ([facility]) Body height 65 [in_i] 65 [in_i] eCW1 ([facility]) Body mass index (BMI) [Ratio] 21.63 kg/m2 21.63 kg/m2 [facility]CW[facility] Heart rate 118 /min 118 /min eCW1 ([facility]) Respiratory rate 16 /min 16 /min eCW1 ([facility]) Body temperature 98.3 [degF] 98.3 [degF] [facility] Systolic blood pressure 136 mm[Hg] 136 mm[Hg] e CW1 ([facility] Diastolic blood pressure 82 mm[Hg] 82 mm[Hg] eCW1 [facility] Patient Treatment Plan of Care Planned Activity Planned Date Details Description Data Source (s) meloxicam 15 MG Oral Tablet 03/11/2021 12:00:00 AM EDT eCW1 ([facility]) celecoxib 200 MG Oral Capsule 03/11/2021 12:00:00 AM EDT eCW1 ([facility]) Baclofen 20 MG Oral Tablet 03/11/2021 12:00:00 AM EDT eCW1 ([facility]) meloxicam 15 MG Oral Tablet 03/11/2021 12:00:00 AM EDT eCW1 ([facility]) celecoxib 200 MG Oral Capsule 03/11/2021 12:00:00 AM EDT eCW1 ([facility]) Baclofen 20 MG Oral Tablet 03/11/2021 12:00:00 AM EDT eCW1 ([facility]) Amitriptyline Hydrochloride 10 MG Oral Tablet 12/28/2020 12:00:00 A M EDT eCW1 ([facility]) Aviane 0.1-20 MG-MCG 09/24/2020 12:00:00 AM EDT eCW1 ([facility]) Aviane 0.1-20 MG-MCG 09/24/2020 12:00:00 AM EDT eCW1 ([facility]) Aviane 0.1-20 MG-MCG 09/24/2020 12:00:00 AM EDT eCW1 ([facility]) Seasonique 0.15-0.03 &0.01 MG 09/22/2020 12:00:00 AM EDT eCW1 ([facility]) Seasonique 0.15-0.03 &0.01 MG 09/22/2020 12:00:00 AM EDT eCW1 [facility]
[2021-03-13] MEDS ORDERED: BACL1TAB9 (06:48)
[2021-03-13] MEDS ORDERED: VIEN1TAB (06:48)
[2021-03-13] MEDS ORDERED: SERT25TA21 (06:48)
[2021-03-13] MEDS ORDERED: MELO15TA28 (06:48)
[2021-03-13] MEDS ORDERED: OMEP-221 (06:48)
--- OUTSIDE RECORDS SUMMARY | 2021-03-13 09:51 | CCD ---
Author Author [facility] Organization [facility] Address Unknown Phone Unavailable Care Team Providers Care Supervisor [place] Name Role Phone Madhav Dacosta MD Unavailable [...] REINDL, LANA HOPE Unavailable Unavailable REINDL, LANA HPOE Unavailable Unavailable REINDL, LANA HOPE Unavailable Unavailable [...] HUIZENGA, Florencio MINER DO Unavailable Unavailable HUIZENGA, Florecnio MINER DO Unavailable Unavailable HUIZENGA, Florencio MINER [...] is protected by Article 27-F of the [facility] Public Health law. If you continue you may have access to information: Regarding HIV / AIDS; Provided by facilities licensed or operated by the [facility] Office of Mental Health; or Provided by the [facility] Office for People With Developmental Disabilities. If such information is present, then the following [facility] mandated warning applies: This information has been [...] law may result in a fine or long term sentence or both. A general authorization for the release of medical or other information is NOT sufficient authorization for further disc losure. Family History Family Member Name Family Member Gender Family Member Status Date o f Status Description Data Source(s) Unknown Unknown Problem MEDENT ([facility], ) Encounters Encounter Providers Location Date Indications Data Source(s ) [place] [address] [facility] [address] 03/11/2021 12:00:00 AM EDT eCW1 ([facility]) [place] [address] [facility] [address] 03/10/2021 12:00:00 AM EDT eCW1 ([facility]) Outpatient Attender: Madhav Dacosta MD _[id number] 01/2021 07:15:59 PM EDT [facility] [place] [address] [facility] [address] 01/22/2021 12:00:00 AM EDT eCW1 ([facility]) [place] [address] [facility] [address] 01/22/2021 12:00:00 AM EDT eCW1 ([facility]) [place] [address] [facility] [address] 12/28/2020 12:00:00 AM EDT eCW1 ([facility]) Outpatient Attender: LANA Moncada/Gricel/rAmen/Jonathan jaramillo 12/09/2020 01:45:00 PM EDT MEDENT ([facility] [place] [address] [facility] [address] 10/29/2020 12:00:00 AM EDT eCW1 ([facility]) [place] [address] [facility] [address] 10/29/2020 12:00:00 AM EDT eCW1 ([facility]) [place] [address] [facility] [address] 09/23/2020 12:00:00 AM EDT eCW1 ([facility]) [place] [address] [facility] [address] 09/22/2020 12:00:00 AM EDT eCW1 ([facility]) Outpatient Attender: Madhav Dacosta MD LH_[id number] 07/21 [...] [facility] [place] [address] [facility] [address] 06/26/2020 12:00:00 AM EST eCW1 ([facility]) [place] [address] [facility] [address] 06/25/2020 12:00:00 AM EST eCW1 ([facility]) [place] [address] [facility] [address] 03/23/2020 12:00:00 AM EST eCW1 ([facility]) Attender: Rita Manzanareser: KRISTOFERCHADWICK REDD DO 02/05/2020 08:20:09 PM EDT [facility] Immunizations Vaccine Date Status Description Data Source(s) Pfizer #3 dose COVID-19 (given elsewhere) SARSCOV2 VAC 30MCG/0.3ML IM 10/26/2020 02:49:00 PM EDT completed eCW1 ([facility]) Pfizer #3 dose COVID-19 (given elsewhere) SARSCOV2 VAC 30MCG/0.3ML IM 10/26/2020 02:49:00 PM EDT completed eCW1 ([facility]) Pfizer #2 dose COVID-19(given elsewhere) SARSCOV2 VAC 30MCG/0.3ML IM 10/26/2020 02:49:00 PM EDT completed eCW1 ([facility]) Pfizer #2 dose COVID-19(given elsewhere) SARSCOV2 VAC 30MCG/0.3ML IM 10/26/2020 02:49:00 PM EDT completed eCW1 ([facility]) Pfizer #2 dose COVID-19(given elsewhere) SARSCOV2 VAC 30MCG/0.3ML IM 10/26/2020 02:49:00 PM EDT completed eCW1 ([facility]) Pfizer #2 dose COVID-19(given elsewhere) SARSCOV2 VAC 30MCG/0.3ML IM 10/26/2020 02:49:00 PM EDT completed eCW1 ([facility]) Pfizer #2 dose COVID-19(given elsewhere) SARSCOV2 VAC 30MCG/0.3ML IM 10/26/2020 02:49:00 PM EDT completed eCW1 ([facility]) COVID-19 VACCINE Pfizer 10/26/2020 12:00:00 AM EDT completed [facility] Vaccine Series Complete: YESThis Data wa s Submitted to [facility] Via [employer]. Pfizer #1 dose COVID-19 (given elsewhere) SARSCOV2 VAC 30MCG/0.3ML IM 10/05/2020 02:48:00 PM EDT completed eCW1 ([facility]) Pfizer #1 dose COVID-19 (given elsewhere) SARSCOV2 VAC 30MCG/0.3ML IM 10/05/2020 02:48:00 PM EDT completed eCW1 ([facility]) Pfizer #1 dose COVID-19(given elsewhere) SARSCOV2 VAC 30MCG/0.3ML IM 10/05/2020 02:48:00 PM EDT completed eCW1 ([facility]) Pfizer #1 dose COVID-19(given elsewhere) SARSCOV2 VAC 30MCG/0.3ML IM 10/05/2020 02:48:00 PM EDT completed eCW1 ([facility]) Pfizer #1 dose COVID-19(given elsewhere) SARSCOV2 VAC 30MCG/0.3ML IM 10/05/2020 02:48:00 PM EDT completed eCW1 ([facility]) Pfizer #1 dose COVID-19(given elsewhere) SARSCOV2 VAC 30MCG/0.3ML IM 10/05/2020 02:48:00 PM EDT completed eCW1 ([facility]) Pfizer #1 dose COVID-19(given elsewhere) SARSCOV2 VAC 30MCG/0.3ML IM 10/05/2020 02:48:00 PM EDT completed eCW1 ([facility]) COVID-19 VACCINE Pfizer 10/05/2020 12:00:00 AM EDT completed [facility] Vaccine Series Complete: NOThis Data was Submitted to [facility] Via [employer]. Medications Medication Brand Name Start Date Product Form Dose Route Admi nistrative Instructions Pharmacy Instructions Status Indications Reaction Description Data Source(s) celecoxib 200 MG Oral Capsule Celecoxib 200 MG Celecoxib 200 MG 03/11/2021 12:00:00 AM EDT 1.0 {capsule_with_food} active Celecoxib 200 MG eCW1 ([facility]) meloxicam 15 MG Oral Tablet Meloxicam 15 MG Meloxicam 15 MG 03/11/2021 12:00:00 AM EDT 1.0 {tablet} active Meloxicam 1 5 MG eCW1 ([facility]) celecoxib 200 MG Oral Capsule Celecoxib 200 MG Celecoxib 200 MG 03/11/2021 12:00:00 AM EDT 1.0 {capsule_with_food} active Celecoxib 200 MG eCW1 ([facility]) meloxicam 15 MG Oral Tablet Meloxicam 15 MG Meloxicam 15 MG 03/11/2021 12:00:00 AM EDT 1.0 {tablet} active Meloxicam 1 5 MG eCW1 ([facility]) Baclofen 20 MG Oral Tablet Baclofen 20 MG 03/11/2021 12:00:00 AM ED T 1.0 {tablet} active Baclofen 20 MG eCW1 ([facility]) Baclofen 20 MG Oral Tablet Baclofen 20 MG 03/11/2021 12:00:00 AM ED T 1.0 {tablet} active Baclofen 20 MG eCW1 ([facility]) Amitriptyline Hydrochloride 10 MG Oral Tablet Amitript yline HCl 10 MG Amitriptyline HCl 10 MG 12/28/2020 12:00:00 AM EDT active Amitriptyline HCl 10 MG eCW1 ([facility]) Amitriptyline Hydrochloride 10 MG Oral Tablet Amitript yline HCl 10 MG Amitriptyline HCl 10 MG 12/28/2020 12:00:00 AM EDT active Amitriptyline HCl 10 MG eCW1 ([facility]) Amitriptyline Hydrochloride 10 MG Oral Tablet Amitript yline HCl 10 MG Amitriptyline HCl 10 MG 12/28/2020 12:00:00 AM EDT suspended Amitriptyline HCl 10 MG eCW1 ([facility]) Amitriptyline Hydrochloride 10 MG Oral Tablet Amitript yline HCl 10 MG Amitriptyline HCl 10 MG 12/28/2020 12:00:00 AM EDT suspended Amitriptyline HCl 10 MG eCW1 ([facility]) Amitriptyline Hydrochloride 10 MG Oral Tablet Amitript yline HCl 10 MG Amitriptyline HCl 10 MG 12/28/2020 12:00:00 AM EDT active Amitriptyline HCl 10 MG eCW1 ([facility]) Aviane 0.1-20 MG-MCG Aviane 0.1-20 MG-MCG 09/24/2020 12:00:00 AM ED T 1.0 {tablet} suspended Aviane 0.1-20 MG-MCG eCW1 ([facility]) Aviane 0.1-20 MG-MCG Aviane 0.1-20 MG-MCG 09/24/2020 12:00:00 AM ED T 1.0 {tablet} active Aviane 0.1-20 MG-MCG eC W1 ([facility]) Aviane 0.1-20 MG-MCG Aviane 0.1-20 MG-MCG 09/24/2020 12:00:00 AM ED T 1.0 {tablet} suspended Aviane 0.1-20 MG-MCG eCW1 ([facility]) Aviane 0.1-20 MG-MCG Aviane 0.1-20 MG-MCG 09/24/2020 12:00:00 AM ED T 1.0 {tablet} active Aviane 0.1-20 MG-MCG eC W1 ([facility]) Aviane 0.1-20 MG-MCG Aviane 0.1-20 MG-MCG 09/24/2020 12:00:00 AM ED T 1.0 {tablet} active Aviane 0.1-20 MG-MCG eC W1 ([facility]) Aviane 0.1-20 MG-MCG Aviane 0.1-20 MG-MCG 09/24/2020 12:00:00 AM ED T 1.0 {tablet} active Aviane 0.1-20 MG-MCG eC W1 ([facility]) Aviane 0.1-20 MG-MCG Aviane 0.1-20 MG-MCG 09/24/2020 12:00:00 AM ED T 1.0 {tablet} active Aviane 0.1-20 MG-MCG eC W1 ([facility]) Aviane 0.1-20 MG-MCG Aviane 0.1-20 MG-MCG 09/24/2020 12:00:00 AM ED T 1.0 {tablet} active Aviane 0.1-20 MG-MCG eC W1 ([facility]) Aviane 0.1-20 MG-MCG Aviane 0.1-20 MG-MCG 09/24/2020 12:00:00 AM ED T 1.0 {tablet} active Aviane 0.1-20 MG-MCG eC W1 ([facility]) Seasonique 0.15-0.03 &0.01 MG Seasonique 0.15-0.03 &0.01 MG 09/22/2020 12:00:00 AM EDT 1.0 {tablet} suspended Seasoniq ue 0.15-0.03 &0.01 MG eCW1 ([facility]) Seasonique 0.15-0.03 &0.01 MG Seasonique 0.15-0.03 &0.01 MG 09/22/2020 12:00:00 AM EDT 1.0 {tablet} active Seasonique 0.15-0.03 &0.01 MG eCW1 ([facility]) Seasonique 0.15-0.03 &0.01 MG Seasonique 0.15-0.03 &0.01 MG 09/22/2020 12:00:00 AM EDT 1.0 {tablet} suspended Seasoniq ue 0.15-0.03 &0.01 MG eCW1 ([facility]) Seasonique 0.15-0.03 &0.01 MG Seasonique 0.15-0.03 &0.01 MG 09/22/2020 12:00:00 AM EDT 1.0 {tablet} active Seasonique 0.15-0.03 &0.01 MG eCW1 ([facility]) Insurance Providers Payer name Policy type / Coverage type Policy ID Covered green party ID Covered green party's relationship to perez Policy Perez Plan Information [facility] [id number] CHILD [id number] BCBS EMPIRE [id number] CHILD [id number] BCBS E[employer]IRE [id number] CHILD [id number] [facility] MEDICAID [id number] S [id number] [facility] Community Plan Primary [id number] [facility] I [id number] Self [id number] [facility] COMMUNITY PLAN [id number] [facility] COMMUNITY PLAN [id number] [id number] [facility] MEDICAID [id number] S [id number] [facility] COMMUNITY PLAN [id number] [id number] [facility] MEDICAID [id number] S [id number] Managed Care - [facility] Community Plan P [id number] S [id number] D Managed Care [facility] P [id number] S [id number] UN FB [id number] S [id number] [facility] MEDICAID [id number] S [id number] [facility] MEDICAID [id number] S [id number] Managed Care - [facility] Community Plan P [id number] S [id number] Medicaid S [id number] S [id number] [facility]-Medicaid [id number] [facility]-Medicaid [id number] MEDICAID [id number] SP [id number] [facility]-Medicaid [id number] [facility] [id number] ANSI-Medicaid [id number] ANSI-Medicaid [id number] ANSI-Commercial [id number] ANSI-Medicaid [id number] ANSI-Medicaid [id number] ANSI-Medicaid [id number] ANSI-Medicaid [id number] ANSI-Commercial [id number] ANSI-Commercial [id number] ANSI-Medicaid [id number] [facility] COMMUNITY PLAN [id number] BCBS EMPIRE ADELAIDA DIV [id number] VALUE OPTIONS OUTPATIENT CLAIM [id number] [facility] [id number] GF2 [id number] SELF PAY ONLY UNAVAILABLE UNAV AILABLE [facility] ([facility]) [id number] Self [id number] [facility] ([facility]) [id number] Self [id number] [facility] [id number] SP [id number] [facility] [id number] S [id number] [facility] [id number] FA2 [id number] SELF PAY UNAVAILABLE UNAVAILA BLE SELF PAY SP UNAVAILABLE UNAVAILA BLE [facility] [id number] SP [id number] [facility] O [id number] S [id number] Medicaid S [id number] S [id number] [facility] MEDICAID [id number] S [id number] UN FB [id number] S [id number] BCBS EMPIRE [id number] CHILD [id number] [facility] [id number] CHILD [id number] [facility] O [id number] S [id number] D Managed Care [facility] P [id number] S [id number] [facility] [id number] [facility]-Medicaid [id number] ANSI-Medicaid [id number] ANSI-Medicaid [id number] [facility] [id number] ANSI-Medicaid [id number] [facility] MEDICAID [id number] S [id number] [facility] MEDICAID [id number] S [id number] ANSI-Medicaid [id number] ANSI-Medicaid [id number] Problems, Conditions, and Diagnoses No Information Surgeries/Procedures Procedure Description Date Indications Data Source(s) OFFICE OUTPATIENT NEW 45 MINUTES 12/09/2020 12:00:00 A M EDT MEDNICOLAS ([facility], ) Results ID Date Data Source [id number] 01/22/2021 01:29:00 PM EDT [facility] Name Value Range Interpretation Code Description Data Jessica rce(s) Supporting Document(s) SARS COVID ANTIGEN NEGATIVE [facility] This lab was ordered by SUSSY ayers nd reported by [facility]. ID Date Data Source LUIS M COVID AG (Point of Care) 01/22/2021 12:00:00 AM EDT eC W1 ([facility]) Name Value Range Interpretation Code Description Data Jessica rce(s) Supporting Document(s) NEGATIVE NEGATIVE LUIS M COVID ANTIGEN eCW1 ([facility]) ID Date Data Source [id number] 08/05/2020 09:15:00 AM EDT [facility] Name Value Range Interpretation Code Description Data Jessica rce(s) Supporting Document(s) Follow Up [facility] KEZNBz5bDlWQOuHkDCPcIhrZCEwkBEhfEGXtV6B0MQfqIz8MCOysyaYaNQTpKa7+BXImTA3ddj3gJEMv gMy [file] J1FslJath9Ev/NsbGD+WyMypnaO4Lmf7ENIGxHBwQoX1uIOkAkJ0kBs9fOBpstYqlK3ShRxw+Ax6S/darío [file] 0qbd7NJ/WcU+UoIcOpDIlVqiYazfvTaBRezS+w6/Darío [file] TWlc+Román/lAzm3fWX+DNfujg10WEMVjd1l7ZpZ049H [file] vocational technical education director/KKsyNLC4MX23oHMt5zXPuDHI17P70inTtj1TEiuXqcl3TFsAhaRwtZ2qbIPrVCKGtyAijHPMTgTS [file] 4G/industrial chemistry teacher/xtG0Ar7elA9cye45W26HTs+FaOsJl4ihGL8ZnWDNzGbqwrVI+h8e4Icf2HMIMBde8HA3uSluy [file] yd5H2bwFkjnUQdlw4J1BIltajZe74/Jn3xC/kzdHvcTJv78mhY7NBLCbTCW4n8sUHNwU8CTdYZ6H/Flores X9hXgb0NlT3tac61OXw9I9joaQfUVtB0RVTS2rqsWLw+6HQHy5KyA1htbSD5vxdWOWMMmiXoc5E0erfS K7Wflf7+yQqbqn57q8+bkg/gOEnxdm8YwcXdCASPnw o0lSbexMFA8+7yf8T9bZz1y3jSgj3qQ6Ckb+RFPHzXGThWN0MTE+l3Jp8xTzLywXRdzSMRrhoEb0hMyR Sfdq0KsaFDV2VzxOMtpBi8LQbj7mD9g/30nmrISj/3JXnmppMadidIzm1uAQWuesm7wwgeH+CfY/zRKw tIduWTN34V9XNNsAbXZT0pph4YeqofdSlsf67+2hGd iOxpasbyvJHonJrsCoWu8pzgK4cpKhprI41zCDEckLasxB56MkMXCiL6s/Aj6HWCb/K79R9f89IIv5Lm HnSLsjDOb+FlxETdA/wtRfWz0C9LB1g99G2/VOeCaJXAbA5YiC5b3xlZk195tsUEz1wjxWMXM8dlWtRG hOXw9LQrB3XTOCTiKwuYKwB8JIayIEa5/om4rvRngz +kJExy3rX9TF6VL36H0k7hyDG/qnb071Rfkx42vrqFMO6AHxe7dDk59sdmKpAGMkNEE/MTNrvvfw4+STOREKEEPER STEWARD Vrk/RNNU5MaUcyJrL3cJy/m2p03UuVS+HJSvDJ+VBZlIVlekGKt1+LfcEd4JyQMMr/tG3XCq2DYEGUgT 8mi0NT0Vplwzq6h8J3YvIBOrFQB/JpwZralVopOJ9f 7b+W90xzNqihWEGW140fhGxodDFPOSvf0c6Rf/U8A9sCN/eEew0miEu2wo5o4JG+tQDl8hXEdZFFgme8 Wg6/WOe1wbjwqMlxTTN3hzuwW40d//MiDjXYi5+u+rJT9A0+65fA1+8z7Bn1l5lHz50ev1xkw+YZShbL cIV+yz1XeUPDXZvAxp+g4xfBesrPRoo+/PzBUbPFNb OnccVemqOHzMv2DIg4tBIUzeZQNu+86wvtf4mvJMLa3aKNlnJscBcUn4rsp4ZGguTtXDoosbYVylrVFn 6EFePhI5057FNSzOmckbyCZSnl5WimI/PqbMBmZTgo3mK5IJ0Fb8Rg54BlFCr7nQhgxU+ArgFHtYb3b0 eu1A9i8s+jntoEdtl6H/N9myqBIUMkm5L8gLhi2yhC odI8BN0dn04Vo7apE9hbLPrYpX/zuwh5kGU5dhp/lZ+MATA/IF6DXj4LCmhaaQA8ipTUsuIokWsS5NNAc [file] sweatband drummer/1DAlretuUq72CHGDJp8B49Lugy7RxUPoncxy9S [file] /Mda+r/osteopathy doctor/cEkzVyKw66VBpm+yA2/Gc6Fab7Ww+Wh [file] f11SuU4fQO0lcgz/supportive employment case manager/NPn8pIReY54z3yBwOG7KNSGU9oFdEuVm1+tjHy83BAjhXPM9tXd/G2q6SuWdA [file] vbbZQa3QUSp38cecD34u4r+digital research analyst+S5K5c4sNfq2140n 0AWjbboDV/wvNl9cdNAL8yEECdWNZm5r3PfIcWYrUd3xUDnW2pDrPzUNu+SWFMbBtSzdutzFa2AM/azV /KiC6quaPq8PIFE5UN06NOSTz02eiosuq+1HkzlVCH2OJJr3KXqlGoR1BuilNS9i5pRrmTG4Y7h1ss6R hdt/raqR++LGXd9aAXyU+pI9c0+uyG0D/92SdrtN1l PomN4swwheCeL5qLi0ZtAIGFukwt0tckQjvB7lvu0yzHe4zsd1kMop0aQEQQwiWM7uL6FOn+cJHnoQp6 e6SwdMYXk0P9hnEg16LKhhlN5a8qyvghd7gQICkMnbDxwwJ2bAb4kDY8YWXQG2d91w/PL81huYdnjaG8 V5cm0b+2xLVB1g0uAwNHzJJXp21DnH0iy7OGcuVa+B WiNUNPsxADJWnW9lYkOx3tKBi4nXUqrN77n8P8SMl5+k88J99C36tn3zfT9cVaRbR/DsZV6RmX/6XgAr ngAREUbYlc3y8aFAyrW2AuF9rnULmDlbvowhQ61XvVlmRqkVf8PfeCzjTOtprXzncGFekuWeYNL1xRzS Fba5B4udph4D1/YIgdTG1nABUztCVwMXnFgRmTWhuS RrmJ5MoDzmSnheiGN4TPdbbGYbrVxH0MdXocJ621IwQ/Hvp+7BdajsJLSpTsdpsZYiNS0KtakE+KYhUl jF0HIj4QrxAT4ZflN4sbwBysLaJWdenq2hP8QyRAjszIaLkpwvMg4CHTfaU6u8/Vq9+mkW3dxCtY2+ADRIEL [file] /Nw+CbaThNDtAKeRGD+5lQHZtTkRBmusyosgxovEWjpD8nhfO8UwnZ6PvrFtz9mLgxrS4NtX+hvac sheet metal installer helper+Bj [file] 0ogFuUPSch8oxDEFJMAY+golf club head former+MuKdGy1MCqB/74p8hh [file] KCDO7/893sjNL4LU8stwBUHlUz3EzOUnMFcR4b+ [file] BzyZ3FCS7blvmoTsoDDx7/bazOq5TZfKS012r6b5DjgfO4g/supervisor sleeping bag department/iJyTb30kKqoWFk7fs8NPpHXzhkR2 845R79+IGcuVz5NU8dY3DtSjDZHrpOyTzguuaW/wO4cQma1iDPDiTcPBYgL+G16xTLwCDFTv7fZxq+8I 86/OZ3spaPndz1w9f+MfuGEj9ITadLlT5BTTQx1Vki 6+K8qO8JhuThzV4+9BtNc3eW/SXbozv2cKaWMn0wfeDYO2GUSLLiE7kcn+LYNGNKmeCGjKDJ5ZgbWOal +dnW4y05PLvbSLlI2FtZXwxArmMB/73Q1ez4273hm7gYfD8bc7ipoB3f9ufcF7sn+h7wgxiceUlqzCMA X7O/NiXn0tkqK7MaXm7ZlVSlxASZS7lNWP0jDnpenZ h8Fa78eWBx8IqY5AWiIFIdPENbs5W1wC3Y+ADjj4YLL6siojiNy4OUDTx7dSHW8hY1rKHu3UFe96CRN1 EqPgrEbrfr0s1tRHqK8P1v9EaRrUtlSGgMXFQKQzT+pPxC7TWtJOCyX9U9phFWiv7icVGN+gK5My++v9 63ky2/LDlsoH+B/AVgxy2/hbjYynUfEK1uyrNm0VSv sFdqKyyVKMzP2iGIJ+h3RUxDNsfFnrwTldnUU1Zdp2lHrLXDuZtJ1Pfugy4bsMtoVxk2M1r3jA0/lgtu gLK5maOX2wpHeYvqQOk1ijyCsIWw9ST+vpaMxBlcT7NOOwUFf3mEiXgUE8zI5oI4d6N58HNnhvzt+EjK W94e/GXssT3TmO1oQCLVkajuyCOmvDbLPFX33z8kHv s7wNAdDhKBBhfq6bbl+VZAzqOEe1QKF872GOA37AKjQHttp71UQ78Xo0czAEVw1HwSmPqJt7Vp44Yy2o i/XX+1AByxseHsi5jCSHdK16S9+bnFvROx/Y9mRlF4+7LT7Ie+Cx0sboE08oWIJXESPu2A2lb7vJfc3C +MnZLLUgMVhHkZ4NhXmgrgl8Lbf2R+Mason/EBj0Xp5I6 [file] GjOzHlQd9BGK73jK0V5T9frfHUN1UQIASmB+oJy32zo127Lt4QsJYrYk38UXsFuhuCZD//eAI20GA+Insurance Claims Clerk [file] 8p1+eZ+Concepción+hmtEOLYJdIC/wmRzYemotTZc9DJ74vmnnuasLGO1ljhfNkYOVPw1sFYaBypOaerQDPzYK [file] //fPqDJCFvf3t109z/vJftZvjls0+UrRvMhKimA/Darío/CIcoxUFHIv47uUkQmsMi+SDubG3BDTGhPwKXW [file] HpRdw6vJqC3RdBT0tEJ98iyWdNDYyidQoKur+GEssdLWOGfrZodiGh1ksUn3O3zY9IW4ULv1HLVEJ/Mason m4KwS9T+14qKAVCjmv2/+oTC61YzDujfqXpVBePNpO GW0ltCU/9G5r8pfxShNK79AbnOsrMgYcbIF+0uxjHTsN5dlS77m7A0PDul1MqrZzpQOJIMwCSNwbsEK8 qznZQulHvIVHPHm0+6rDtc845y+zy272R/cwxEeSZkDw9QeTqQeO43Z+vPy3A49rJepIbn0l6a9+4hy5 Np0dI5s6mJy3CRE2xHTpvXSyJPANHeHLNtXwLE4nHA Ec59SwH3TjL5XlY2OkYptLKwuSDPVplyXXIpmd+9YtMEaaunV3wI5JmLVxkmPl9YxgYABVj3kp/n5WFy ROcOin1rbIJt7nVIpruWt/LkVC06q2Cvtag9YNChcqN1M8YiZ02JNeUzhWam9LNKMn7F3rkOHPlNkMpb 8LmlY5ZWQq7BW8dqkcM6+LzesRbUoFeKLnPBJDK0tn GX3LuMI30zP2OSx6OW5ULvJnwdmRq7STY/Wm9iF+s6CTMzBxF5J9kbd+Kwkua6tgIIAd6ZjwT+jLg6ki /z1L6D6XU8ME9ramuLT6Ex7HV4lgKWMhW22UzDUEd78sUo6+bZ61JKUkGb1lNfFS42Ej91neov8yGrDj LbGfwIurCscEMcbuNfxPxZBlwTzpwx4m7YeRsDoiw+ Wli+5VgnryLqyCsZf3vv2VDQCnPshRnA67FA5IjY01H04FfJDZ1V55cOzIZGjtUhIF40TjV/CFLDPCaC Q7/EUMnWuguztZxuvkahNMQbQoFGDlIxoJnYKWL8xzcfRaxyHkSYfqW4VjtyXy1Tu13uI7S+UBotGHk3 wAQ0zDQVqEw4O2SpWIaZF9KUf2OVxqX07G9f0suQzY GeUoBtu7xiAyCXHGf7prCNAEo5bLuzqbB2c9umqWaPCb9HqCxpdtDGjPMzjNJEH2H5Pj+tcPF4Hcky3V kJgoKf0zJfpndJ2vhPzbTIKPUgGCSr0kmyBmcTcXyyavy5AR2O/BFidwtG6okEvllk51cP7bhJO9/Jeremías [file] cELQjsvNDN5In39Mfrc4j87w1y8YTPp/DARÍO+YkvLhrx [file] LreWC0J0aBiUkNxSZy/Sarath+pcmg26KSg+day worker+ikftSBEWsZe9PvDYMUJuY5bbKvH8lBivuih+cHYjKDca [file] [facility]/p4ZnlpUiQmVB2opby03bSZqMQE63vTWJqFKNs59evkY7ZyHwFqdOzoZy9aowvGn8tgoVlo98E1j lPUKdQ/svRUDymzb4d6Gm22pwLoC5Tsb3IDIxivY2Q 8ZTJMKWy3YmWvo10nUSqW0ZvuspH94Xom3H2GJ/9pzikd0E0R9KyT6M5p9iFp8SsRAZXJYqeECp5UK7u caXozcLlElNX8xi3tcBhEP0oNfTP9/fZhtFTiYrbXf6880AxT6msUy4nXcIQ9PMmxA8OFFAxEZVw+Donny [file] NF5pWh8otaMnZxTDqFyEv0tB/gUL+efpL5TFxqxIhp4dRsf7eqYvwHRl3CEnw+xNbXpCtlPMZW/BB+golf club head former [file] cIgqkyrMG4gDoa/S6G3r4tlQ7eQQ1Ezj0MHu+gAxKWkdLYjP3jCdKl2kb+GgL8M/DPwD8D/Felicita/A8+Zm c1ORXYy7qTQAvfYzAGnxan2OwKEiMGtkFjzZwbBjoad0cpjTSUGae/ojs9c3oi5IF6aTLdh2mtb3e0v/ 1m6o4ktX7YYHRw18lu3jM2BeqoGXhDypKa7vH+fs1P c1oVEo9SKRrjbCInIS1HbDExf7o4CmnHCpHRpq17WH0f1wdDsSh55ObACd4xje4d5R9gOhnCKzkn9G3w 480fEu/yIzoee1UD8JGbcDgu5c+5+S1dSLbl+gk7DaNkdAAz+Rg2YrWsygn6H4XazEUjXuO43f3x+aiW yFSy5tuJ489YUKF5vWZVifQsAQiRyxbekjcKm/42aO YfDlNMeGYQMG4RAUtMQYBVL3q/mMYM/CfTIfaMzfElUA2pDhuveUc3zoUzN2dxHENLtJwt8zvILTxNpe iQv/lepze5ZrF5GXDVXnM8KYXl5C26NhcuukAAt6yySeF1Lva/AJyqFgDUbDdsikyzOcNQDvvALibrEQ WY/d5DtN0D2GYAXAWtghN7yyuarAguG5vOQ80x6mJm 8HDLPagoEHByqCx8BzXhAmE9nagieF2K6yR/VFtzTxgA+Insurance Claims Clerk+q+mjUCk96UD+jnZ0awxh3EkiEH9VHxD9 [file] qgXBWZ9l5RMnGsYn3DQTGGDR6TH7SOFQJKZZlcuDMM h04rgmkZ6BjA7NR7P/9URInSFFafbAtTe2Zrlq+aikIgEG3TAAIHS+NrGXS3vXPc6mCzYlq3O6bCBoC0 NRXy+oo7h/wamovpwyKlRnlsV5W1NkFvcrRB3DNYgzOhrqw3xZRFcbqEuyLNhHhFUD9EfRFCwMtsmbws kg0MmfAPtg+TccxTGiZU3yTL7CvuQTyqMvYQUm6Jh+ /gIO7ZRpkpEs9+o7tyEj1suCRi57tPVu3FOK6gIiYVmhMCQgDf5zmwpSLtrJBen2cdhwq+KThYqo/HvA k10xtVV+4Z8GRMJEvKPtOi4hN5g+Qk4vYAE7gr8qxomd29dWy/hv1WWSZ3GmKZDSp3JUHQBYIo6P/business enterprise officer [file] JEbz+eJhoTRKh61m27HGvvl5n+Assistant Project Manager+AZpzk3ilVAzx [file] Xk5hYWfKtN+Daroí+8ukVt91Slb0roq7fR9rMd3Rgddum [file] Insurance Claims Clerk+v7YzWvtcLBoz0s+aW/VJMFsS2zzLqgADmAYpMVi Lz8kYAst2L+agRZYLa54ebrvX0O1kDHya43KFk4jYDjqB5XHjSgF4TGbOzLlryHly+TKw8C1w4r6t0zr c0l+Ogc+C6nNbqWY6xKR6D8RxhVE3gxDquFX+hhdUldCEtoWxYvvHjkH46cl5+O89JH1h2WRsoq3ImsB zIsp7/fikMgy5eJ8+ijefFRfPSzn7zoulATsiXY9SN /isl8KGtqFyZJkczEfr1j+cIYnv6mLRxX70Zd1tq2sdpWPiq4y9X4nkS6ciU7OMIA11J1w57Y6BWn4dQ OhJ4kLgdN79LrdKHHUg8+6fxjo2krowG1zd74TbFMUwCyliUFKNxB3h2wbK5yKKeiUwf2JuOKszyyTqp VRYOz3EvV4tv+czFdER4CzBTFPfBlRtYtcE3ytz7V/ W5qDsdMD5AN3vKfxQ5b+bb8dlUVTTRVNV9DQgTBpFcvYK7rYb6LLO+ZApKXKdKoPdkxknT6rfPhRM3oA M9qLILRwD69b+5ftlpIjSJTWftFB71B0O7joJU0sA9bJVBqNhG7WjeasJkqWI2B8Be4QuBHFPasF/Johnathan [file] NShZGtMn0cnroD79BtY5hbiYUdJG9qUY1oiKleu/Spring Former Machine [file] 642fp7Y09wM3M145Kai2Qm0vH7122GWG4MoiRlwD299jH7h4SK7VZn2L+2nz2sXCs9uUZ4BX3PXEP4O6 llkXDt0v2nMtbXI5KkFzgy2fI40xgNmdVbW5/JX+GiSW+jlao92f5X914V/WXMHIxlS0eByqCBSCNQr3 hZjZk8oO2QWULTCgn0n8C4fgSB/0RjxcQIYrd7jtAX BWlyZjt1MzndEyIlfm0/ssTalASQ558WqlsZ54TNJdhyp0VhwxMD1tn6Nb+PJqg0Hh0k3VJhX0NCVVUQ QmIqKvPQCdSPSmQCW542X+BestTDPqpfhhRzyvmziULVIBIpOJC457aUilmcclU3EiDAkO37jtOnnMIb 2sdBj8+jlXXvXtWnIib84p8cCLSkp18wRYKBQhKWkr CKfzJYD3K2cp7HFoiJ+supportive employment case manager/AmKh7n4m6DyfSxHIru7cHkWRP1zi3vAM6X5/VQHwsWNm4Z0b4TT2IgjjrZ [file] XUGOGC1NvHvXZYRSARGi8bqDKr+ByP1+AAXQ1o1CkF wNy4vJRJ/6XdHSpQ3mo5Oz4AmWUTgyDY5CYhtyiiMTUQ7gHDMMVGMmHMquwlInnNQgZY8KLwKhDD0fqs 9VWmN2SER9qARcPt3EMGB1FbTeWQ9HZTTOE6T= ID Date Data Source HCG, SERUM QUANTITATIVE 06/25/2020 12:00:00 AM EST eCW1 ([facility]) Name Value Range Interpretation Code Description Data Jessica rce(s) Supporting Document(s) < 1.0 HCG, SERUM QUANTITATIVE eCW1 ( [facility]) ID Date Data Source [id number] 02/05/2020 11:15:00 AM EDT [facility] Name Value Range Interpretation Code Description Data Jessica rce(s) Supporting Document(s) Follow Up [facility] OJCFTs1pUtMIEbNtDPGgVycZALyqXSahVQYvW4Y0VBhdOw5PXHhuvyXiUYXlDq8+SGGbCX8ttd2iFLUr gMy 4pVLQvMiaqJ9CcIUMyn58QGDMaOFnCYbCzPdJnFRU6NfLxXXA1QDL4TiByNuatWM2oWDQ0HWTiIUahWC HqUFWeNSSqPLX2OX4oTExrKGpbVn3YYY5lw6NpFABnHZNrAvzCQQebEYxcMDWqIPQuYKDhQ223zlRsWG 5XmEPrWCn0GMWwIsG9QYOrWtK0FRZxGhTpQeMvVJCf B4Mro417loVbtaL9CR1RJ7ZlBWY7RCw2G5bfBkIlYKQyARMvWJ3yCcB5GLTeUs2YhLzvPZRbSZOuFx0S xNy2RZW6QTWzZm4+Pj4+Co6cbrJaMtoHYZLuRO3pct46GQ3VmMSdRC7QDYjfA58mQMbhCp92MNimYGMi LxXzLHj6Su2hHuUve6OiZ7VlQVs3B7eWBfqkQ9AuVQ isAH7xCBU6QNSrTd7+Dm7pRURkUB11GNCyMMNCN0YeohSvbjZtYKo4PYArFx9+Zr9fbwGkYuwDHOEwUO 7jwn89BS3IEK9ylTxbLaK1GWfkJ33gqTVbO4xiTvPsW9YiyBduCNZiAJ3eA4UmSXlvQFCdEK2ukvIldZ 2ScKg2KVRaSx9EhPH4RKPdT23pRJPmBHCOOPQwd8Zj ST5Wb6ofbuVeZNRfWQ7USOToW0XZY7ExL1ncbSziRUVfUZ5ANXteoMMhXCm4VQ3VuMYqCLEwT70iaM8q QJ10ZMs+SwP8skTipG6KrVrpl3BEWL026x8S7+QrGz0XqIhEDWWJFMjrAWBO9F5OxDqVZITZe8Vab3fu 7gwafAYd/OS/5006aX7nrjb8mn7cngx81u9V90sd20 [file] bW39Q56ObXi3ru/bm22XWUN7jqOPG0m+CERAMIC PAINTER/bdHTE4Qyvzx20z+iXVcY8u9KLHAinLB5Wlk99stMv1LLg [file] BllZrkvLPiiam846w/Insurance Claims Clerk/GGZli8we8nVXlywCT7bhNZVxjbHBLYS2JGbpJKNm8OtAxMyKIu9jFjP+EAo [file] 1mGaEGP2Tzi99T/Darío+PT/rgTfvWhty74WT/pZ1AOO9W8skLpZehmIHAA2Pg8XXSpg9qZzkAqEIB3Ek7r [file] EdE8+Darío/uZb5XeW8v7I9W5Yeqr+qTxolyzp5NdDMYG [file] MLwWtUeKGpgQAeU9YyNtnaq/wood tank erector/HJmZAEltyRSj08 [file] F3OewgK/supportive employment case manager/pfggzsaQaI9FAyFpXAc6KA74mdvJX1b8Megmzrfqxthg1nsZGVLc2B/fehv9cF5lMtCoV [file] /VXIaJ65MBmx29RA4XnTVirVWMowvw4UzA7FP [file] CptxBH2dYx/administrative assistant office manager+IQSDJovb7QM7ddhYp5S4Ut2zQQf4Ct8Ih72umRXWh8hrY6QWB0z0ba5c4U0iKLg9m [file] +Ewft56kQPaGHoxZVY/sXedGiUt9vfLpLd5xp49S9yldZSWWT8mqV3lvwHwF5TfhJ3/CERAMIC PAINTER+gThm8V5l02 [file] HMNjs6lgWOE13qA/B75rjGwWBtYHiHorl7+golf club head former/ABj/ [file] lv4hjb9v2PCrvgwoPyJSlQzyddY2Vtu47+UQf1+gSRXAwbRprz9E6w0XpNR7DahXBPmoil87hJ2h7+evp and chief operating officer [file] 0Tr9/PKY8NHNEmFIO62Ndxa1H6vFnbmJ1ijtEup+d4d6CP1sy/MARY ELLEN+9wkyfGxmbGsDN1b6+H1uz+yMzk [file] of48jimzI0PTkuUctvcHbgrbfvwal7yI6feBHcX4bv 41DWvdOR7axvDRSUqs7gB0D1UYD/bd8YR0xy19K1KbkYdkgN8KQkIKCuwD19kMu7kL1Lgkzyq79dLyH9 KSxo+OsSIpm88NPFCcM3Ck9cCrnfBC+FgVuz0dB2fKVDGukb7jggpT+PtvY+CERAMIC PAINTER+p+o/XcGRFS9N2A7pp [file] Insurance Claims Clerk/rVSF5MvnecbR2+CynWHdTmwaSxHgHqNwM8I6bAV xrxtMbtEOn2nWDcuB8/1EoiPw7V8+D68FI2MDG3bcaQJfSoAQ72nrOel+G/dIoij0Wl1dmC3S3pL5o4+ b9mG0+Ybl8IfiwJjOSVAHkDekSsOdhZcHxB8QWjJmbIunF8+lzbmpcluUkrOuWtzE4uDbR6arXIPklE8 eJmMXAoKfA33O+JWMHO0xQTBEOg/2eqwy2s8hXRN+F 82n9/ai5eO2nDxQOtiQLxABroZdJKpA8xG23CS46MrbvWmqpruNcQRY80E5/uZcKjIi2RwATEgwEKeFU /L1PRfVLvBvkbCNJhzxdvA7Ox3vDwKEZKnc5Nt76qmpv0X1PgfmEfIsZ2gRC9tQniMVHPQ/IxGGB0le2 JDDv19zA87tYgWrsIPAFwguvTctRbHOv0o9/HNYZr8 E5SdidoIL3ph7c6NtLmIwn2BiIyxYpa3gw/Z65mP4DEVtiw6QJwViQAOj62O00UrYtaGub1++dxpL5py FK1pDmPmUyMEt4BCt6wORrKWzfg4bns1fQ8lJmOTdSAS3t457ePEugVrdtbhnPYc3CUahV2cg/FUts12 JZR/0be94IuMgXwDiyCv/QTpdIZ6mgptj6w7zmo4jX ezsZaXy/p22SS2bZazleCsPoipIPoRDCLm0Ig6MstiuMqggeGKj7OSkt8KTwtjZNdbn5z+8KoDHNptcO /VS99vbcyZxKsSKNj8FnwlqUsD2he5DkSxG2bzNJhMA1DEAj7Tu4Cr5MESFYNScXQ8yQ//lNCwW17+8g 1+FZ+b8kkwyk1bnmdjXl5W+PLZY99b0cEo13cGf9Pm tfqw0+lSDdCWLnFrGwWF+5d98AF7d9juAd5xLeAQ8E1BFDTg6RchkirTxRR1Cih/x5vITozTTXB/OJdh 2UgjrsqEzpShWJt4Qs+Bipc0Xgg+6ysv35zggoT0X3b0nC2x7PyZMoBMUU47jIsZzDcoupWjNa5ecZ9e 41eV3F6133sdp1DDlIaZ++0Mr337K9uQyd7cQ/1eFU [file] DPef0SblG/0kF5ULCLo8hmpQ+gUyxla2udZxdy9GaHPtaNx6TSZlrok1dT2bAspD/cjVam71mDoed/darío [file] YljEyrDCHs9I+BLcK6rN93ztB3CpauIblxWG87l/Darío [file] jdfiAIaA8nlwRl+ARTIS/Wgx4GvMr9VMl5LKNM3u6LIR KmSN8SIaVex3OsOa23F1pf7zhjw17MDaKYI2x039bZcqLba/hAbuWu8qfieG0wSZOisMp9LmOjxzansw gLyBhMzvl52A0MVBeTH454+ZKC/zV2ceGfx8CH1V2gbslPtxHwGWMpSq5Gt9IOtna+FEqRH3pNZh+3sZ 1Ox3MnDIx0MAkoh4PRNoobjutlgPBJbg9hHRikTIUb /b2JT789dJHxzdMYjq8QbxUdGE8KHGLWdSVKJd/TJdhO4RGTdx2AUcN7rXtE0vT4vdqX6avpjD+/zj5J u6LmVw4ep6tFreFxdafUDF93sTIo+PVv6hFaxNcFm23h2Al9qyS3K/lBPE07YNkmF/1rcxObpj//+708 WEsurw0w2q7I7dtpDnCdADHtJZdBUAW7bSbLZVERTG CDqzJzPAwgDxE8JLIdJvKZtJFN7QTU07McDMrsdAXUqDxuvfdjNn5pobf+qqnv/bF+qimw529X5cx707 Ja83P4R038a2TQaHNqlmG4hkPm3lpL2ypgEhqUypMrWOPGF3DtgkBc4R9VmDoq9bmPKYakAOsZmPz810 radiotelephone operator+F8S/sQn9f17D6n54sVUG549zhRdUTT06bP85Mj OFe3PmbCzlzhVCGoqoeo2Ruil8wnAfhZrQ+z94hJ63V0cg16dzwA2LGPe3vLZLEKAFVnNUttlZrXRma9 fuw/Ev2wzwmUqgBbKAv5DzDbP+NBnQfZdYZlpNnU8CqBwepIQju0TvziNunmNJCJ8QBgO4hiLM+ji3IY KNCU427SvoWLlnArrBKwTBVPzgvd9+S1dJlzlCkfaE CNTy9DggNCgnuU7YRHpVR7Kxw5Mnf9Dgz8rxwJr1hxz7hnHA2pVa6yW1DEC1rMJE3iTQSimkUOGNzbam Sn/4QzekWBbMpox4E67fT9CdBqY86zHpL4sgRHDbOjX/wQmIp2XGDZ/1qbSU5jEVJp74fgO8Ynhg85Ic gKqz3bbq3MBYcHfRdSxuMVMVQOLXtTfwntpuOnZ/alves [file] baEkIj4BRKhDFwKKHMJEc49Ls7cuquXJ5hG/PG/Ronna /FNx00CUSTdPAKGTSRsnVF40fNPrFURTIEXs32MrPWhdVVph4Y0d1sZ7MaAA8jOL2LbCRK3/kGdbSawm LrIWPPDSCaCaIOexLHk0gGa0luDtImC47C1w/861nxWBA93F21QHxw5QO4OxArZ3pC0WXEKOwCGVVAte fqWrCyOutQlLXiPbbsgl1oYS4W53zNJTxqIHPw3ikN fyIeTYCM6VADDYjKMrm7MKPyomjnNUGwdICmluZZV5IHlMFd386n4QLkAfQ4VhH1Orn8z+/ws0U5yUDE UA11PxZ34Qd7CmlqEy6zNnbdeTA3bF/tIhvHO1KBIgYxeC65T5gqYBaCniS0hSXXL9C91e/iDuotraPX Y1tJaqeN1O2NQCvaQYq013r6gDpFVymxt6xbMCBvx5 qaLkO6uz5SvJTxbDO5o463QI2GNRKtstrNSK9kuujqbW28NaO+W6R1E9C2oiRo9fGUq0WbZzyxxEdeKU /Z9+RRW1ZINvybOjmJdL5Pp4cYj75MkfFEZkECYReK5YGvXINdtBweEZVB2DhyAifaFGCz3nYuxz7tdz bn3IBp1vIFvU3h3L95/P/jEkDrQLql0VVnm4X3Zq9G Gj+DIchoHgWP6E2LIniTyDgVd15+T3rEFbiTlip2UsJCGK5Td9Y2pbF9iEuGWb+WaPfOZGvIn5CRR0ei ppXb4Y50FPx+nRRV61OiuwlzWA5XzejzpuJPBmeq8mKk6rHJJimdJgsjiIbRB21E4n9sc1Y6IScWbwUv Qe8CbwwPfn3THDoNnN+mBjeORT5bKpG6phyfQWShp9 dD5Nv45n3oXytFrBIUp2W5YyoUCt+ice8Iexyl+/HUF624c48kEqqxJsfP5wyrE9H6y8MA3GuPFPteOv o+ydMA2aTgIZ6DBZS3Gj75bM5gVEU/9GIBVBAj2/CT/RuE9nglgjhgAzlShMZazkk91zDkSSHgoDjzdh supportive employment case manager/Tyg0HohcgElvs0Tcs18a9C4FWEN4gUfkjxxJHPl [file] recreation aide/qzmyS2mL5sNBuu/1UXTKLJNmzucNUSMplK4c1y [file] [facility]+WLDNulmoa5V3Y+5ARuS7HbJonNMrs9R8FBID91uVXPCPEPfZGztyeYSaMRELWdTcabqFTW4NWu [file] v2FzRUHBxskdjeVvjdwxpiukrAh5kdlV3X0ydolU0jgsnoBnykh5K5AjYx3Ww9X63fUEJOTOklXif/golf club head former [file] qtTcarD+E+I/Cp3W3o8j/h9aPdfK64V+/uwb5TMHw/Kv/+bag mender+zykU8jo0iZusCxRmc40zDzGVZbcoBt [file] 9G ID Date Data Source [id number] 01/22/2020 10:15:00 AM EDT [facility] Name Value Range Interpretation Code Description Data Jessica rce(s) Supporting Document(s) EGD-Colonoscopy [facility] NJYBEl1vYvFROjJjJXFdYolSLEkfYEvpDVUiI8A9LLmhWw0LWBtogkUjBHIqPm2+SMHxZJ8izn9oUCSr gMy [file] +supportive employment case manager/1GvVzM4lBuHGhrCRvXOZbUwxq7F6RTTULX0U3XzfiF5Wt9t3CLvRvuU/fDvYN37YrwWgyDCe3H6g 2MemNF/SoHyXrDKGYl5giGsdHaWr1i1+dy85o8LxCkjUdl56ENsFHo5gyyz844WtrDPufCfRh0IR5BNB zNHHqvMnhR54B+0iiz8vqhLUQuQCAaJaecn560D4zQ 7PM43DZ6Mz9VLxjIxl8x5/CPyKLredcIb6UiKCLeXxMo1juByy4yuzhpr0eBSSwtpnYvGTfWNo6wvjmU k2zuJ7y5YX6jYy2/HZeaDTal4QPGmJEBzgwSBFSJgzaIjKEzMarAluLWJdi7dHunr22YsCDFn7/2cUx3 s3HyR5sbGFT3tCrD2LcARvrSHbXCGbkHWz+uNM+u9l A5u3tUdj8yNPnlMX9K4kjcBdXMiCX1pCvnqN7XMEr1oRaDicQssnYbkeZ398ZZPxXO1k8Nq+p8LIxD77 lxxr79gBV4MsqGdAu0F2zSYFkkaDaTHqe9mwCpOMtT7X+A8xfJOdW6dCV9ixsuc8tDwPLl29b1nZ5SVy nella/j2/tmwsIqEEGorZFAx2athyZh5b1FcYykqnobO [file] 1LJlTdnbpOCrr8BPWpFt6SpksD63kW48EJeMzEz99SqrW/BxVdBCE/hhnar/STOREKEEPER STEWARD+rvDLXp+t3U9iN1IoM [file] GFd99HLIACdzvjtc8A872AG1awLXSB4id8IwPsmKOrKgoKCO22bgqF4/xFwabPKU4P04Q8rdPmjx+dental services director [file] Spring Former Machine/1EuniawRhhbQIcHQiGqjcbjDUa+R41P2zM2Na/fxpobzAXBBYMr6hZ4ohku1dlRLY1pdRWHaLfo6p [file] r1cRGfK6Wp7wwXfVjaarlcm1VlVkFFqAx7umrEzfDgE03lZ81RgzDzYAF0u7LqeXZ5M8HX014aH1/LOWER ELWHA [file] p8D8+osteopathy doctor+ps204EdVF4DnAdmXZ7eDLlDk9e69QphSQ [file] BACK TENDER INSULATION BOARD/FPTpQ1VxeGz0nig5Qg7Lza/GKbTZs3BzA8hCypkEfYAwX7o2cj09Cr9HORLlQTkVtvFuQ9JsfiQ/ [file] PKNA/NdULvnmYbhLk1eIrUtS+NUMERICAL CONTROL MACHINE MACHINIST/8NqoEciO6V4vr [file] FV2uYu/48/Darío/klf9XlUI/G4aqqY6260CxA5rVaGMfEw1BdlX7NFYZ20QAlqH7jRbFbFh10ardkNQ4YV [file] TAxuV/5ar2NqBlpwJ+roll over loader+Lwss3c86wonqC0tRsXboJIP+7Qe1406iWjGocCqUc+QKAdkjxDCsvkPPlPi [file] +tF2dzLLdbSCpw18pHIKP1NjXQmz0z76m2kF7Y+manager home [file] vhf0d+HNjzhh3qwJex8zOuCJkqwBzyrVZOUjVQC+joc4br26pgoKxpOlpiktklLERBYG/I+n7IIjz/golf club head former [file] 4iaxoK/s6kRkvxRQnL/P/Vft+yHLCHbYbNo0/oZxJU2NnDJNwVeurwNpteJ/sales operations consultant/2KxnT+VMtEucmfyP [file] zVkYU/BKND/+/STOREKEEPER STEWARD/J5M7TY4/+H/tI4db1ETRcT6WO0 DvxerKKf8zChPSwM2gb2HLFD6q5pGB2n1oxEpdnL/VLwLifgEnqqUKG6F2+W/hmmi5FGtHygj1mrjVSg weXPycSwvg+Ed0CbGDcF9Pw7Oeoi/S+on5zaDTq+Wjirr6A5DgkMVWGp8LEPdwuH9cxo81AzKox6Aps8 Gk1B8fEDaPygPZL1OtmG4B8+8n8Dbb5VXnRUtyO2Bl vYoFPq3QHdAgvFouR3G65fxbdDqxgks/zzyklOlAXTvCr1Ug5+yAIge6Hela/CPP/ayeaCXhCoJx+n1J 3CLooW6yS+Cf4SIur169SjlQm89Tx2/g/jNohVhpwN4HWVJl/8C8hSV7CO9cVq/CAYOh+eJOLhKYEcop 6OjRlzoj26LPeTl2NY1ijl98dGsQay+WYE0tvB5gFA GeumSzv6JzWNA+Gc8mq1wied4idc9/FwXVLDzioko+K+R6jbateYX3XZ6vr77MM2uQSpxQKgHaKqWFuT r8bOOA74ho7Dt1LZrwZUluSSweosrZ0gjyu/TfNBtmzYJ/0FGSzVPbaSHI9QjNzy8QVt/EkgHJjTo3l4 atCVE7IuoY8QLfElGhF9kYfg8ueG1t+NKfxo101g/H /longoria//Mu//Mu//Mu//Mu//Mu//Mu//D+dheVS2hECRaL9WooLWo50bcy8vZfKdFh0wOvp0F0d1ZRB3Pfj [file] Stacy/z/PkljW5Mwb8mua06S/7HqFt0JyoGVwaoITBRIVsCIylpj2fqF9tfQ5I7itzG17dyRK8ESy01I9 Njp8sKLDc9cBx7nbrwG+e6QMKaqzp/QtXPFovcTbf/zxhey8FdhatFVcTdmhAt/kaat9EtPMwVP5q/STOREKEEPER STEWARD [file] v4UZF3KQ1CJFSOB1G= ID Date Data Source [id number] 01/17/2020 10:45:00 AM EDT [facility] Name Value Range Interpretation Code Description Data Jessica rce(s) Supporting Document(s) SARS coronavirus 2 RNA Not Detected [facility] This lab was ordered by [facility] and reported by [facility]. Procedure Social History Code Duration Value Status Description Data Source(s ) Smoking 03/11/2021 12:00:00 AM EDT Current Smoker completed Curre nt Smoker eCW1 ([facility]) Smoking 03/11/2021 12:00:00 AM EDT Current Smoker completed Curre nt Smoker eCW1 ([facility]) Smoking 01/22/2021 12:00:00 AM EDT Current Smoker completed Curre nt Smoker eCW1 ([facility]) Smoking 01/22/2021 12:00:00 AM EDT Current Smoker completed Curre nt Smoker eCW1 ([facility]) Smoking 12/28/2020 12:00:00 AM EDT Current Smoker completed Curre nt Smoker eCW1 ([facility]) Smoking 10/29/2020 12:00:00 AM EDT Current Smoker completed Curre nt Smoker eCW1 ([facility]) Smoking 10/29/2020 12:00:00 AM EDT Current Smoker completed Curre nt Smoker eCW1 ([facility]) Smoking 09/22/2020 12:00:00 AM EDT Current Smoker completed Curre nt Smoker eCW1 ([facility]) Smoking 09/22/2020 12:00:00 AM EDT Current Smoker completed Curre nt Smoker eCW1 ([facility]) Smoking 06/25/2020 12:00:00 AM EST Current Smoker completed Curre nt Smoker eCW1 ([facility]) Smoking 06/25/2020 12:00:00 AM EST Current Smoker completed Curre nt Smoker eCW1 ([facility]) Smoking 03/23/2020 12:00:00 AM EST Current Smoker completed Curre nt Smoker eCW1 ([facility]) Vital Signs ID Date Data Source UN[facility] Name Value Range Interpretation Code Description Data Source(s) Body weight 131 [lb_av] 131 [lb_av] eCW1 ([facility]) Body height 65 [in_i] 65 [in_i] eCW1 ([facility]) Body mass index (BMI) [Ratio] 21.80 kg/m2 21.80 kg/m2 eCW1 ([facility]) Heart rate 102 /min 102 /min eCW1 ([facility]) Respiratory rate 16 /min 16 /min eCW1 ([facility]) Body temperature 99.9 [degF] 99.9 [degF] eCW1 ( [facility]) Systolic blood pressure 123 mm[Hg] 123 mm[Hg] e CW1 ([facility]) Diastolic blood pressure 82 mm[Hg] 82 mm[Hg] eCW1 ([facility]) Body weight 129.8 [lb_av] 129.8 [lb_av] eCW1 ([facility]) Body weight 58.88 kg 58.88 kg eCW1 ([facility]) Body height 65 [in_i] 65 [in_i] eCW1 ([facility]) Body mass index (BMI) [Ratio] 21.60 kg/m2 21.60 kg/m2 eCW1 ([facility]) Heart rate 93 /min 93 /min eCW1 ([facility]) Respiratory rate 16 /min 16 /min eCW1 ([facility]) Body temperature 98.5 [degF] 98.5 [degF] eCW1 ( [facility]) Systolic blood pressure 126 mm[Hg] 126 mm[Hg] e CW1 ([facility]) Diastolic blood pressure 73 mm[Hg] 73 mm[Hg] eCW1 ([facility]) Systolic blood pressure 112 mm[Hg] 112 mm[Hg] Sera RODRÍGUEZ ([facility]) Diastolic blood pressure 64 mm[Hg] 64 mm[Hg] [facility] Body height 65 [in_i] 65 [in_i] [facility] ([facility]) 5'5" Body weight 131.00 [lb_av] 131.00 [lb_av] MEDEN T ([facility]) Body mass index (BMI) [Ratio] 21.8 kg/m2 21.8 k g/m2 [facility] ([facility]) [place] body weight 125 [lb_av] 125 [lb_av] [facility] ([facility]) Body weight 59.422 kg 59.422 kg [facility] ([facility]) Body surface area Derived from formula 1.65 m2 1.65 m2 [facility] ([facility]) Body weight 132 [lb_av] 132 [lb_av] eCW1 ([facility]) Body height 65 [in_i] 65 [in_i] eCW1 ([facility]) Body mass index (BMI) [Ratio] 21.96 kg/m2 21.96 kg/m2 W1 ([facility]) Heart rate 104 /min 104 /min W1 ([facility]) Respiratory rate 16 /min 16 /min W1 ([facility]) Body temperature 99.7 [degF] 99.7 [degF] eCW1 ( [facility]) Systolic blood pressure 113 mm[Hg] 113 mm[Hg] e CW1 ([facility]) Diastolic blood pressure 74 mm[Hg] 74 mm[Hg] eCW1 ([facility]) Body weight 129 [lb_av] 129 [lb_av] eCW1 ([facility]) Body height 65 [in_i] 65 [in_i] eCW1 ([facility]) Body temperature 99.4 [degF] 99.4 [degF] eCW1 ( [facility]) Systolic blood pressure 120 mm[Hg] 120 mm[Hg] e CW1 ([facility]) Body mass index (BMI) [Ratio] 21.46 kg/m2 21.46 kg/m2 eCW1 ([facility]) Heart rate 106 /min 106 /min eCW1 ([facility]) Diastolic blood pressure 82 mm[Hg] 82 mm[Hg] eCW1 ([facility]) Respiratory rate 16 /min 16 /min eCW1 ([facility]) Body weight 132.12 [lb_av] 132.12 [lb_av] eCW1 ([facility]) Body height 65 [in_i] 65 [in_i] eCW1 ([facility]) Body mass index (BMI) [Ratio] 21.98 kg/m2 21.98 kg/m2 eCW1 ([facility]) Heart rate 116 /min 116 /min eCW1 ([facility]) Respiratory rate 16 /min 16 /min eCW1 ([facility]) Body temperature 99.0 [degF] 99.0 [degF] eCW1 ( [facility]) Systolic blood pressure 112 mm[Hg] 112 mm[Hg] e CW1 ([facility]) Diastolic blood pressure 75 mm[Hg] 75 mm[Hg] eCW1 ([facility]) Body weight 130 [lb_av] 130 [lb_av] eCW1 ([facility]) Body height 65 [in_i] 65 [in_i] eCW1 ([facility]) Body mass index (BMI) [Ratio] 21.63 kg/m2 21.63 kg/m2 eCW1 ([facility]) Heart rate 118 /min 118 /min eCW1 ([facility]) Respiratory rate 16 /min 16 /min eCW1 ([facility]) Body temperature 98.3 [degF] 98.3 [degF] eCW1 ( [facility]) Systolic blood pressure 136 mm[Hg] 136 mm[Hg] e CW1 ([facility]) Diastolic blood pressure 82 mm[Hg] 82 mm[Hg] eCW1 ([facility]) Patient Treatment Plan of Care Planned Activity Planned Date Details Description Data Source (s) meloxicam 15 MG Oral Tablet 03/11/2021 12:00:00 AM EDT eCW1 ([facility]) celecoxib 200 MG Oral Capsule 03/11/2021 12:00:00 AM EDT eCW1 ([facility]) Baclofen 20 MG Oral Tablet 03/11/2021 12:00:00 AM EDT eCW1 ([facility]) meloxicam 15 MG Oral Tablet 03/11/2021 12:00:00 AM EDT eCW1 ([facility]) celecoxib 200 MG Oral Capsule 03/11/2021 12:00:00 AM EDT eCW1 ([facility]) Baclofen 20 MG Oral Tablet 03/11/2021 12:00:00 AM EDT eCW1 ([facility]) Amitriptyline Hydrochloride 10 MG Oral Tablet 12/28/2020 12:00:00 A M EDT eCW1 ([facility]) Aviane 0.1-20 MG-MCG 09/24/2020 12:00:00 AM EDT eCW1 ([facility]) Aviane 0.1-20 MG-MCG 09/24/2020 12:00:00 AM EDT eCW1 ([facility]) Aviane 0.1-20 MG-MCG 09/24/2020 12:00:00 AM EDT eCW1 ([facility]) Seasonique 0.15-0.03 &0.01 MG 09/22/2020 12:00:00 AM EDT eCW1 ([facility]) Seasonique 0.15-0.03 &0.01 MG 09/22/2020 12:00:00 AM EDT eCW1 ([facility])
== END 2021-03-13 09:00 | disposition left against medical advice (07) ==
LOC: M ED 06:16
DX: Z53.21 Procedure and treatment not carried out due to patient leaving prior to being seen by health care provider (principal)

== ENCOUNTER 2021-06-20 15:03 | Emergency (ER) | payer OTHER ==
[~2021-06-20] VITALS: Ht 165.1 cm; Wt 57.9 kg
[~2021-06-20 15:03] MED LIST changes: +BACL1TAB9; -DICY20TA11 PO; +DICY20TA20 PO; +MELO15TA28; +OMEP40CA5; +SERT25TA21; +VIEN1TAB
[2021-06-20 15:04] VITALS: BP 132/74
[2021-06-20] MEDS ORDERED: ACETAMINOPHEN TAB 650MG DOSE (2X325MG) PO ONE (16:15)
== END 2021-06-20 18:53 | disposition home or self-care (01) ==
LOC: M ED 15:03
DX: J02.9 Acute pharyngitis, unspecified (principal); R51.9 Headache, unspecified; K58.8 Other irritable bowel syndrome; F32.A Depression, unspecified; Z79.899 Other long term (current) drug therapy

== ENCOUNTER → 2021-10-12 | Outpatient (REF) | payer OTHER | LOC: M PLALAB 14:52 | PROVIDERS: ATTEND Advanced Practice Midwife | DX: Z34.80 Encounter for supervision of other normal pregnancy, unspecified trimester (principal) ==

== ENCOUNTER → 2021-12-23 | Outpatient (REF) | payer OTHER ==
[2021-12-24 13:07] LABS: GC DNA AMPLIFICATION NEGATIVE (NEGATIVE)
== END ==
LOC: M SFHCWAGY 10:12
PROVIDERS: ATTEND Advanced Practice Midwife
DX: Z34.02 Encounter for supervision of normal first pregnancy, second trimester (principal)

== ENCOUNTER → 2021-12-28 | Outpatient (CLI) | payer OTHER | LOC: M WHC 07:34 | PROVIDERS: ATTEND Specialist | DX: Z34.02 Encounter for supervision of normal first pregnancy, second trimester (principal) ==

== ENCOUNTER 2022-01-16 14:24 | Outpatient (CLI) | payer OTHER ==
[~2022-01-16] VITALS: Ht 165.1 cm; Wt 63.8 kg
[2022-01-16] MEDS ORDERED: PREN1CAP15 PO (14:42)
[2022-01-16 14:43] VITALS: BP 123/77
[2022-01-16] MEDS ORDERED: HOME MED LIST COMPLETE! XX SCH (15:25)
[2022-01-16 15:36] LABS: RBC, URINE NONE SEEN /hpf (0-3); SQUAMOUS EPITHELIAL CELL URINE SMALL AMOUNT /hpf (SMALL AMT)
[2022-01-16 15:37] LABS: AMORPHOUS SEDIMENT, URINE SMALL AMOUNT (NEGATIVE); BACTERIA, URINE SMALL AMOUNT; HYALINE CAST, URINE NONE SEEN /lpf (0-1); MUCUS, URINE SMALL AMOUNT (NEGATIVE)
[2022-01-16 15:53] VITALS: BP 124/62
[2022-01-16 17:27] VITALS: BP 127/63
[2022-01-16 19:29] LABS: GC DNA AMPLIFICATION NEGATIVE (NEGATIVE)
== END 2022-01-16 18:41 | disposition home or self-care (01) ==
LOC: M LDO 14:24
PROVIDERS: ATTEND Obstetrics & Gynecology
DX: O26.892 Other specified pregnancy related conditions, second trimester (principal); R25.2 Cramp and spasm; Z3A.26 26 weeks gestation of pregnancy; Z88.1 Allergy status to other antibiotic agents; Z88.8 Allergy status to other drugs, medicaments and biological substances

== ENCOUNTER → 2022-01-19 | Outpatient (CLI) | payer OTHER ==
[~2022-01-19] MED LIST changes: +PREN1CAP15 PO
[2022-01-19 17:24] LABS: HEMOGLOBIN 11.7 g/dl (12.0-15.5); MEAN CORPUSCULAR HEMOGLOBIN 31.3 pg (27.0-33.0); MEAN CORPUSCULAR HGB CONC 33.4 g/dl (32.0-36.5); MEAN CORPUSCULAR VOLUME 93.6 fl (80.0-96.0); PLATELET COUNT, AUTOMATED 180 10^3/uL (150-450); RED BLOOD COUNT 3.74 10^6/uL (4.00-5.40)
[2022-01-19 19:46] LABS: GC DNA AMPLIFICATION NEGATIVE (NEGATIVE)
== END ==
LOC: M PLALAB 13:51
PROVIDERS: ATTEND Advanced Practice Midwife
DX: Z34.02 Encounter for supervision of normal first pregnancy, second trimester (principal)

== ENCOUNTER 2022-03-02 11:15 | Outpatient (CLI) | payer OTHER ==
[~2022-03-02] VITALS: Ht 165.1 cm; Wt 67.3 kg
[2022-03-02 11:34] VITALS: BP 135/79
[2022-03-02] MEDS ORDERED: HOME MED LIST COMPLETE! XX SCH (11:40)
[2022-03-02] MEDS ORDERED: LACTATED RINGER'S 1000 ML IV STA (12:01)
[2022-03-02] MEDS: BETAMETHASONE SOLUSPAN 6MG/ML 5ML VIAL (J0702 PER 3MG) IM SCH (12:24)
[2022-03-02] MEDS: LR 1,000 ML IV SCH ×2 (12:24→16:58)
[2022-03-02 12:28] LABS: HEMATOCRIT 32.6 % (36.0-47.0); HEMOGLOBIN 11.4 g/dl (12.0-15.5); MEAN CORPUSCULAR HEMOGLOBIN 31.9 pg (27.0-33.0); MEAN CORPUSCULAR VOLUME 91.3 fl (80.0-96.0); PLATELET COUNT, AUTOMATED 231 10^3/uL (150-450); RED BLOOD COUNT 3.57 10^6/uL (4.00-5.40); WHITE BLOOD COUNT 13.5 10^3/uL (4.0-10.0)
[2022-03-02 13:25] VITALS: BP 127/58
[2022-03-02 15:29] LABS: INR 0.92; PARTIAL THROMBOPLASTIN TIME 28.6 SECONDS (24.8-34.2); PROTHROMBIN TIME 12.6 SECONDS (12.5-14.5)
[2022-03-02 15:56] VITALS: BP 126/64
[2022-03-02 18:35] VITALS: BP 122/65
[2022-03-02 20:26] VITALS: BP 124/59
[2022-03-02 22:17] VITALS: BP 131/74
[2022-03-02] MEDS ORDERED: CALCIUM CARBONATE 500 MG CHEW U/D PO ONE (23:10)
[2022-03-03] VITALS (7 sets, daily range): BP systolic 101–135; BP diastolic 49–69
[2022-03-03] MEDS: LR 1,000 ML IV SCH ×2 (01:08→07:12)
[2022-03-03] MEDS ORDERED: OMEPRAZOLE 20MG CAP PO ONE (01:45)
[2022-03-03] MEDS: BETAMETHASONE SOLUSPAN 6MG/ML 5ML VIAL (J0702 PER 3MG) IM SCH (12:33)
[2022-03-03 18:56] LABS: HEMATOCRIT 28.9 % (36.0-47.0); MEAN CORPUSCULAR HEMOGLOBIN 31.8 pg (27.0-33.0); MEAN CORPUSCULAR HGB CONC 34.6 g/dl (32.0-36.5); PLATELET COUNT, AUTOMATED 206 10^3/uL (150-450); RED BLOOD COUNT 3.14 10^6/uL (4.00-5.40); WHITE BLOOD COUNT 14.9 10^3/uL (4.0-10.0)
== END 2022-03-03 20:40 | disposition home or self-care (01) ==
LOC: M LDO 11:15
PROVIDERS: ATTEND Advanced Practice Midwife
DX: O26.853 Spotting complicating pregnancy, third trimester (principal); O26.893 Other specified pregnancy related conditions, third trimester; R25.2 Cramp and spasm; O99.613 Diseases of the digestive system complicating pregnancy, third trimester; K51.90 Ulcerative colitis, unspecified, without complications; O99.333 Smoking (tobacco) complicating pregnancy, third trimester; F17.210 Nicotine dependence, cigarettes, uncomplicated; Z3A.33 33 weeks gestation of pregnancy
CPT/HCPCS: 36415; 59025; 76815; 76816; 76820; 85027; 85384; 85460; 85610; 85730; 86780; 86850; 86900; 86901; 86920; 87081; J0702

== ENCOUNTER → 2022-03-24 | Outpatient (CLI) | payer OTHER ==
[2022-03-24 15:48] LABS: HEMATOCRIT 35.9 % (36.0-47.0); MEAN CORPUSCULAR HEMOGLOBIN 31.3 pg (27.0-33.0); MEAN CORPUSCULAR HGB CONC 33.4 g/dl (32.0-36.5); MEAN CORPUSCULAR VOLUME 93.7 fl (80.0-96.0); PLATELET COUNT, AUTOMATED 232 10^3/uL (150-450); RED BLOOD COUNT 3.83 10^6/uL (4.00-5.40); WHITE BLOOD COUNT 12.9 10^3/uL (4.0-10.0)
[2022-03-24 16:28] LABS: ALT/SGPT 17 U/L (12-78); BILIRUBIN,TOTAL 0.3 MG/DL (0.2-1.0); BLOOD UREA NITROGEN 8 MG/DL (7-18); CALCIUM LEVEL 9.2 MG/DL (8.5-10.1); CARBON DIOXIDE LEVEL 25 MEQ/L (21-32); CHLORIDE LEVEL 106 MEQ/L (98-107); CREATININE FOR GFR 0.49 MG/DL (0.55-1.30); GLOMERULAR FILTRATION RATE > 60.0 (>60); GLUCOSE, FASTING 68 MG/DL (70-100); POTASSIUM SERUM 4.3 MEQ/L (3.5-5.1); SODIUM LEVEL 136 MEQ/L (136-145); TOTAL PROTEIN 6.5 GM/DL (6.4-8.2)
[2022-03-24 17:22] LABS: CREATININE,RANDOM URINE 24.3 MG/DL; TOTAL PROTEIN,RANDOM URINE 5.8 MG/DL (0.0-12.0)
== END ==
LOC: M PLALAB 14:25
PROVIDERS: ATTEND Obstetrics & Gynecology
DX: O16.3 Unspecified maternal hypertension, third trimester (principal)

== ENCOUNTER → 2022-03-31 | Outpatient (REF) | payer OTHER | LOC: M SFHCWAGY 17:04 | PROVIDERS: ATTEND Advanced Practice Midwife | DX: O45.93 Premature separation of placenta, unspecified, third trimester (principal) ==

== ENCOUNTER → 2022-10-20 | Outpatient (REF) | payer OTHER ==
[~2022-10-20] MED LIST changes: +ACET-683 PO; +COLA100C5 PO; +IBUP-1022 PO; +NORE0.353 PO
== END ==
LOC: M PLALAB 16:26
PROVIDERS: ATTEND Advanced Practice Midwife
DX: Z12.4 Encounter for screening for malignant neoplasm of cervix (principal)

== ENCOUNTER → 2023-01-05 | Outpatient (REF) | payer OTHER | LOC: M SFHCWAGY 16:58 | PROVIDERS: ATTEND Advanced Practice Midwife | DX: Z34.90 Encounter for supervision of normal pregnancy, unspecified, unspecified trimester (principal) ==

== ENCOUNTER 2023-11-16 12:44 | Outpatient (CLI) | payer OTHER ==
[~2023-11-16] VITALS: Ht 165.1 cm; Wt 64.2 kg
[~2023-11-16 12:44] MED LIST changes: +ONDA-282 PO; -ONDA4TAB6 PO
[2023-11-16 13:06] VITALS: BP 109/57
[2023-11-16] MEDS ORDERED: PRENTAB9 PO (13:22)
[2023-11-16] MEDS ORDERED: TUMS500C PO (13:23)
[2023-11-16] MEDS ORDERED: MESA0.37 PO (13:25)
[2023-11-16] MEDS ORDERED: SERT25TA85 PO (13:25)
[2023-11-16] MEDS ORDERED: HOME MED LIST COMPLETE! XX SCH (13:30)
[2023-11-16 16:04] LABS: Trichomonas vaginalis (AMP) NOT DETECTED (NEGATIVE)
[2023-11-16 16:28] LABS: GC DNA AMPLIFICATION NEGATIVE (NEGATIVE)
== END 2023-11-16 15:13 | disposition home or self-care (01) ==
LOC: M LDO 12:44
PROVIDERS: ATTEND Obstetrics & Gynecology
DX: O26.892 Other specified pregnancy related conditions, second trimester (principal); N89.8 Other specified noninflammatory disorders of vagina; Z3A.22 22 weeks gestation of pregnancy
CPT/HCPCS: 76815; 87661; 87810; 87850; G0463

== ENCOUNTER → 2023-12-27 | Outpatient (CLI) | payer OTHER ==
[~2023-12-27] MED LIST changes: +MESA0.37 PO; +PRENTAB9 PO; +SERT25TA85 PO; +TUMS500C PO
[2023-12-28 11:56] LABS: APPEARANCE, URINE CLEAR (CLEAR); BACTERIA, URINE AUTO 1+ (NEGATIVE); BILIRUBIN, URINE AUTO NEGATIVE (NEGATIVE); BLOOD, URINE BLOOD NEGATIVE (NEGATIVE); COLOR, URINE STRAW (YELLOW); GLUCOSE, URINE (UA) AUTO NEGATIVE (NEGATIVE); KETONE, URINE AUTO NEGATIVE (NEGATIVE); LEUKOCYTE ESTERASE, URINE AUTO TRACE (NEGATIVE); NITRITE, URINE AUTO NEGATIVE (NEGATIVE); PROTEIN, URINE AUTO NEGATIVE (NEGATIVE); RBC, URINE AUTO 1 /HPF (0-3); SPECIFIC GRAVITY URINE AUTO 1.004 (1.002-1.035); SQUAMOUS EPITHELIAL CELL UR AU 0 /HPF (0-6); UROBILINOGEN, URINE AUTO 0.2 mg/dL (0.0-2.0); WBC, URINE AUTO 1 /HPF (0-3)
== END ==
LOC: M LAB 17:26
PROVIDERS: ATTEND Obstetrics & Gynecology
DX: R39.9 Unspecified symptoms and signs involving the genitourinary system (principal)

== ENCOUNTER → 2024-09-17 | Outpatient (REF) | payer OTHER ==
[2024-09-17 18:51] LABS: HEMATOCRIT 40.5 % (36.0-47.0); HEMOGLOBIN 13.1 g/dl (12.0-15.5); MEAN CORPUSCULAR HGB CONC 32.3 g/dl (32.0-36.5); MEAN CORPUSCULAR VOLUME 89.8 fl (80.0-96.0); PLATELET COUNT, AUTOMATED 330 10^3/uL (150-450); RED BLOOD COUNT 4.51 10^6/uL (4.00-5.40); WHITE BLOOD COUNT 5.6 10^3/uL (4.0-10.0)
[2024-09-17 19:22] LABS: FREE T4 1.23 NG/DL (0.89-1.76)
[2024-09-17 19:23] LABS: THYROID STIMULATING HORMONE 0.804 uIU/ML (0.55-4.78)
[2024-09-17 19:25] LABS: ALBUMIN 4.1 G/DL (3.2-5.2); ALKALINE PHOSPHATASE 55 U/L (35-104); ALT/SGPT 14 U/L (7.0-40); AST/SGOT 9 U/L (<34); BILIRUBIN,TOTAL 0.2 MG/DL (0.3-1.2); BLOOD UREA NITROGEN 13 MG/DL (9-23); CALCIUM LEVEL 9.4 MG/DL (8.5-10.1); CARBON DIOXIDE LEVEL 25 MMOL/L (20-31); CHLORIDE LEVEL 109 MMOL/L (98-107); CREATININE FOR GFR 0.75 MG/DL (0.55-1.30); GLOMERULAR FILTRATION RATE > 90.0 (>60); GLUCOSE, FASTING 72 MG/DL (60-100); IRON (FE) 99 UG/DL (50-170); POTASSIUM SERUM 4.8 MMOL/L (3.5-5.1); SODIUM LEVEL 142 MMOL/L (136-145); TOTAL PROTEIN 6.7 G/DL (5.7-8.2)
== END ==
LOC: M SFHCCLAY 11:32
PROVIDERS: ATTEND Family Medicine
DX: K21.9 Gastro-esophageal reflux disease without esophagitis (principal); K52.832 Lymphocytic colitis; R51.9 Headache, unspecified

== ENCOUNTER → 2024-10-03 | Outpatient (CLI) | payer OTHER | LOC: M PLARAD 10:53 | PROVIDERS: ATTEND Family Medicine | DX: R51.9 Headache, unspecified (principal); G43.E09 Chronic migraine with aura, not intractable, without status migrainosus ==

== ENCOUNTER → 2025-03-18 | Outpatient (CLI) | payer OTHER ==
[~2025-03-18] MED LIST changes: -IBUP-1022 PO; +IBUP600T42 PO
== END ==
LOC: M CLY 10:21
PROVIDERS: ATTEND Family Medicine
DX: J06.9 Acute upper respiratory infection, unspecified (principal)